=== PATIENT | male | born 1960 | race Caucasian/White ===

== ENCOUNTER 2017-04-03 06:08 | Observation (INO) | payer BC ==
[2017-04-03] MEDS ORDERED: ASPIRIN 81 MG CHEW PO STA (06:27)
[2017-04-03] MEDS ORDERED: NITROGLYCERIN SL TABS 0.4 MG TAB SUBLINGUAL STA (06:27)
[2017-04-03 06:45] LABS: Basophils % (A) 1 %; CH 31.8; CHCM 37.3; Eosinophils # (A) 0.1 k/uL (0-0.7); Eosinophils % (A) 2 %; HCT 38.2 % (39.0-53.0); Hyperchromasia Slight; Luc % (Auto) 2; Lymphocytes # (A) 1.6 k/uL (1.0-4.8); Lymphocytes % (A) 33 %; MCH 31.4 pg (25.0-35.0); MCHC 36.6 g/dL (31.0-37.0); MCV 85.8 fL (80.0-100.0); Mean Platelet Volume 6.7; Monocytes # (A) 0.3 k/uL (0-1.0); Monocytes % (A) 5 %; Neutrophils # (A) 2.8 k/uL (1.3-7.7); Neutrophils % (A) 57 %; RBC 4.46 m/uL (4.30-5.90); RDW 13.3 % (11.5-15.5); WBC 4.8 k/uL (3.8-10.6); WBC (Perox) 4.71
[2017-04-03 06:54] LABS: ALT 25 U/L (21-72); AST 21 U/L (17-59); Alkaline Phosphatase 56 U/L (38-126); Amylase 44 U/L (30-110); Anion Gap 11 mmol/L; Blood Urea Nitrogen 14 mg/dL (9-20); Calcium 9.2 mg/dL (8.4-10.2); Carbon Dioxide 26 mmol/L (22-30); Chloride 104 mmol/L (98-107); Glucose 100 mg/dL (74-99); Magnesium 1.9 mg/dL (1.6-2.3); Non-African American GFR(MDRD) >60 (>60 ml/min/1.73 sqM); Potassium 3.6 mmol/L (3.5-5.1); Sodium 141 mmol/L (137-145); Total Bilirubin 0.7 mg/dL (0.2-1.3); Total Protein 6.8 g/dL (6.3-8.2)
[2017-04-03 06:59] LABS: Partial Thromboplastin Time 22.9 sec (22.0-30.0); Prothrombin Time 10.1 sec (9.0-12.0)
--- NOTE | 2017-04-03 07:22 | XR ---
EXAM: XR Chest, 1 View CLINICAL HISTORY: Reason: chest pain TECHNIQUE: Frontal view of the chest. COMPARISON: No relevant prior studies available. FINDINGS: Lungs: Unremarkable. No consolidation. Pleural space: Unremarkable. No pneumothorax. Heart: Unremarkable. No cardiomegaly. Mediastinum: Unremarkable. Bones/joints: Unremarkable. IMPRESSION: Normal chest x-ray.
--- NOTE | 2017-04-03 07:36 | ED ---
Chest Pain HPI - General Chief Complaint: Chest Pain Stated Complaint: chest pain Time Seen by Provider: 04/03/17 06:26 Source: patient Mode of arrival: ambulatory Limitations: no limitations - History of Present Illness Initial Comments: Patient is a 56-year-old man who presents to be evaluated for chest pain that he noticed this morning. He states that he had been feeling relatively well throughout yesterday and going to bed. He indicates the pain in the substernal area. Pain is an aching, constant, and is coming by some nausea and dyspnea. MD Complaint: chest pain -: hour(s) Onset: awoke with symptoms Pain Location: substernal Pain Radiation: none Severity: moderate Quality: tightness Consistency: constant Improves With: nothing Worsens With: nothing Anginal Symptoms: nausea, dyspnea Treatments Prior to Arrival: none - Related Data Home Medications Medication Instructions Recorded Confirmed ALPRAZolam [Xanax] 0.5 mg PO DAILY 05/14/15 04/03/17 Atenolol [Tenormin] 50 mg PO DAILY 05/14/15 04/03/17 Hydrochlorothiazide [Hydrodiuril] 25 mg PO DAILY 05/14/15 04/03/17 Albuterol Inhaler [Ventolin Hfa 1 - 2 puff INHALATION RT-Q6H PRN 04/03/17 Inhaler] Isosorbide Mononitrate ER [Imdur] 60 mg PO DAILY 04/03/17 04/03/17 Modafinil [Provigil] 100 mg PO DAILY 04/03/17 04/03/17 Nitroglycerin Sl Tabs [Nitrostat] 0.4 mg SUBLINGUAL Q5M PRN 04/03/17 04/03/17 Vitamin E 3,000 unit PO DAILY 04/03/17 04/03/17 Allergies Allergy/AdvReac Type Severity Reaction Status Date / Time levofloxacin [From Levaquin] Allergy Unknown Verified 04/03/17 07:10 montelukast sodium Allergy Unknown Verified 04/03/17 07:10 [From Singulair] amlodipine besylate AdvReac Swelling Verified 04/03/17 07:10 [From Norvasc] Review of Systems ROS Statement: Those systems with pertinent positive or pertinent negative responses have been documented in the HPI. ROS Other: All systems not noted in ROS Statement are negative. Constitutional: Denies: fever, chills Respiratory: Reports: dyspnea. Denies: cough, wheezes Cardiovascular: Reports: chest pain. Denies: palpitations, edema, syncope Gastrointestinal: Reports: nausea. Denies: abdominal pain, vomiting, diarrhea, melena, hematochezia Genitourinary: Denies: dysuria, hematuria Musculoskeletal: Denies: back pain Skin: Denies: rash Neurological: Denies: headache, weakness, numbness EKG Findings - EKG Results: EKG: interpreted by ERMD, sinus rhythm (With occasional PACs, rate 75 bpm), normal axis, normal ST/T - IA, Pacemaker, Normal: Myocardial infarction: inferior IA (old age indeterminate) Past Medical History Past Medical History: Asthma, Hyperlipidemia, Hypertension, Sleep Apnea/CPAP/ BIPAP History of Any Multi-Drug Resistant Organisms: None Reported Past Surgical History: Hernia Repair, Tonsillectomy Past Anesthesia/Blood Transfusion Reactions: Unable to Obtain Additional Past Anesthesia/Blood Transfusion Reaction / Comment(s): unsure if pt has had any problems with anesthesia Past Psychological History: No Psychological Hx Reported Smoking Status: Former smoker Past Alcohol Use History: None Reported Past Drug Use History: None Reported - Past Family History Mother Family Medical History: No Reported History General Exam Limitations: no limitations General appearance: alert, in no apparent distress Head exam: Present: atraumatic, normocephalic Eye exam: Present: normal appearance. Absent: scleral icterus, conjunctival injection Neck exam: Present: normal inspection Respiratory exam: Present: normal lung sounds bilaterally. Absent: respiratory distress, wheezes, rales, rhonchi, stridor, chest wall tenderness Cardiovascular Exam: Present: regular rate, normal rhythm, normal heart sounds. Absent: systolic murmur, diastolic murmur, rubs, gallop GI/Abdominal exam: Present: soft. Absent: distended, tenderness, guarding, rebound, mass Extremities exam: Present: normal inspection, normal capillary refill. Absent: pedal edema, calf tenderness Back exam: Present: normal inspection. Absent: CVA tenderness (R), CVA tenderness (L) Neurological exam: Present: alert Skin exam: Present: warm, dry, intact, normal color. 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
[2017-04-03] MEDS ORDERED: ENOXAPARIN 100 MG/ML SYRINGE SQ STA (07:42)
[2017-04-03] MEDS ORDERED: NITROGLYCERIN SL TABS 0.4 MG TAB SUBLINGUAL PRN (07:42)
[2017-04-03] MEDS ORDERED: RX INFO: IV CONTRAST WAS GIVEN 1 EACH MISC MISCELLANE PRN (07:42)
--- NOTE | 2017-04-03 08:39 | CT ---
CT CHEST FOR PULMONARY EMBOLISM. EXAMINATION TYPE: CT chest angio for PE DATE OF EXAM: 04/03/2017 INDICATION: Chest pains CT DLP: 481.6 mGycm, Automated exposure control for dose reduction was used. CONTRAST: Patient injected with 100 mL of Omnipaque 350. COMPARISON: Pain TECHNIQUE: CT of the chest is performed on a spiral scan at 2 mm thick sections. Study is performed with intravenous contrast timed for evaluation for pulmonary embolism. This will limit additional po rtions of the evaluation. 3-D MIP images reconstructed by the technologist are reviewed on the compu ter in the coronal and sagittal planes. FINDINGS: No persistent filling defects are evident to suggest an acute pulmonary embolism. No mediastinal or hilar adenopathy enlarged by CT criteria is evident. The ascending aorta diameter at the level of the main pulmonary artery is 3.2 cm. The main pulmonary artery diameter at the bifur cation is 2.3 cm. Lung windows are clear. Limited CT section through the upper abdomen are unremarkable. IMPRESSIONS: 1. No acute pulmonary embolism.
[2017-04-03] MEDS ORDERED: ISOSORBIDE MONONITRATE ER 60 MG TAB.ER.24H PO SCH (10:00)
[2017-04-03] MEDS ORDERED: ATENOLOL 50 MG TAB PO SCH (10:00)
[2017-04-03] MEDS ORDERED: HYDROCHLOROTHIAZIDE 25 MG TAB PO SCH (10:00)
--- NOTE | 2017-04-03 10:06 | P.CRDCN ---
History of Present Illness Consult date: 04/03/17 Requesting physician: Olga Wang Consult reason: chest pain Chief complaint: Chest pain History of present illness: This is a 56-year-old gentleman with history of hypertension, hyperlipidemia, asthma, sleep apnea, he quit smoking 4 years ago, used to drink heavy, quit drinking approximately 20 years, he presents to the hospital with symptoms of chest discomfort. He describes his symptoms as an ache in the center of his chest, nonradiating, he states he did have some mild associated nausea and felt as though he was unable to take a complete deep breath. EKG on arrival here showed a normal sinus rhythm with occasional PACs. No acute changes noted. According to the patient, he was given a sublingual nitroglycerin with relief of symptoms. Chest x-ray normal. CTA of the chest did not reveal any evidence of a pulmonary embolism. Blood pressure on arrival to the emergency room 190/89. Heart rate in the 70s. 97% on room air. Blood pressure this morning 173/90 with a heart rate in the 70s. White blood cell count 4.8, hemoglobin 14, platelet count 205. D-dimer 0.7. Potassium 3.6, BUN 14, creatinine 0.9. Initial troponin 0.012. Patient was initiated on aspirin, he was also initiated on Lovenox. Patient had a stress test performed in the office in January 2016, brief arrhythmia in the form of SVT noted at peak. Moderately positive electrocardiographic stress test. Prominent ST downsloping of 1 mm at 45 minutes into recovery with mild chest soreness. At the time of my examination this morning, patient is currently chest pain-free. Past Medical History Past Medical History: Asthma, Hyperlipidemia, Hypertension, Pneumonia, Sleep Apnea/CPAP/BIPAP Additional Past Medical History / Comment(s): CRIS without device, diverticular dx, chronic back pain, sinus problems. History of Any Multi-Drug Resistant Organisms: None Reported Past Surgical History: Hernia Repair, Tonsillectomy Additional Past Surgical History / Comment(s): Bilateral inguinal hernia repairs , colonoscopies/benign polypectomy, RKAK bilateral eyes, hemorrhoidectomy Past Anesthesia/Blood Transfusion Reactions: No Reported Reaction Additional Past Anesthesia/Blood Transfusion Reaction / Comment(s): unsure if pt has had any problems with anesthesia Smoking Status: Former smoker - Past Family History Father Family Medical History: Dementia Additional Family Medical History / Comment(s): Father of dementia at the age of 94 yrs. Mother Family Medical History: No Reported History Additional Family Medical History / Comment(s): Mother of some sort of intestinal problem at the age of 48 or 49yrs. Medications and Allergies Home Medications Medication Instructions Recorded Confirmed Type ALPRAZolam [Xanax] 0.5 mg PO DAILY 05/14/15 04/03/17 History Atenolol [Tenormin] 50 mg PO DAILY 05/14/15 04/03/17 History Hydrochlorothiazide [Hydrodiuril] 25 mg PO DAILY 05/14/15 04/03/17 History Albuterol Inhaler [Ventolin Hfa 1 - 2 puff INHALATION RT-Q6H PRN 04/03/17 History Inhaler] Isosorbide Mononitrate ER [Imdur] 60 mg PO DAILY 04/03/17 04/03/17 History Modafinil [Provigil] 100 mg PO DAILY 04/03/17 04/03/17 History Nitroglycerin Sl Tabs [Nitrostat] 0.4 mg SUBLINGUAL Q5M PRN 04/03/17 04/03/17 History Vitamin E 3,000 unit PO DAILY 04/03/17 04/03/17 History Allergies Allergy/AdvReac Type Severity Reaction Status Date / Time levofloxacin [From Levaquin] Allergy Unknown Verified 04/03/17 07:10 montelukast sodium Allergy Unknown Verified 04/03/17 07:10 [From [facility]] amlodipine besylate AdvReac Swelling Verified 04/03/17 07:10 [From [facility]] Physical Exam Vitals: Vital Signs Temp Pulse Pulse Resp BP Pulse Ox 04/03/17 09:04 97.2 F L 71 18 173/92 97 04/03/17 08:50 71 18 173/92 97 04/03/17 08:32 60 18 167/87 97 04/03/17 07:18 163/95 04/03/17 06:49 66 18 163/90 97 04/03/17 06:31 69 04/03/17 06:16 97.2 F L 72 18 190/89 97 Intake and Output 04/02/17 04/03/17 04/03/17 22:59 06:59 14:59 Intake Total 200 Balance 200 Intake: Amount of Fluid Infused ( 200 ml) Other: Weight 106.594 kg PHYSICAL EXAMINATION: HEENT: [Head is atraumatic, normocephalic. Pupils equal, round. Neck is supple. There is no elevated jugular venous pressure.] HEART EXAMINATION: [Heart S1, S2 normal. No murmur or gallop heard.] CHEST EXAMINATION:[ Lungs are clear to auscultation and precussion. No chest wall tenderness is noted on palpation or with deep breathing.] ABDOMEN: [ Soft, nontender. Bowel sounds are heard. No organomegaly noted]. EXTREMITIES:[ 2+ peripheral pulses with no evidence of peripheral edema and no calf tenderness noted]. NEUROLOGIC [patient is awake, alert and oriented -3.] . Results 04/03/17 06:27 04/03/17 06:27 Cardiac Enzymes 04/03/17 04/03/17 Range/Units 06:27 06:27 AST 21 (17-59) U/L Troponin I <0.012 (0.000-0.034) ng/mL Coagulation 04/03/17 Range/Units 06:27 PT 10.1 (9.0-12.0) sec APTT 22.9 (22.0-30.0) sec CBC 04/03/17 Range/Units 06:27 WBC 4.8 (3.8-10.6) k/uL RBC 4.46 (4.30-5.90) m/uL Hgb 14.0 (13.0-17.5) gm/dL Hct 38.2 L (39.0-53.0) % Plt Count 205 (150-450) k/uL Comprehensive Metabolic Panel 04/03/17 Range/Units 06:27 Sodium 141 (137-145) mmol/L Potassium 3.6 (3.5-5.1) mmol/L Chloride 104 (98-107) mmol/L Carbon Dioxide 26 (22-30) mmol/L BUN 14 (9-20) mg/dL Creatinine 0.96 (0.66-1.25) mg/dL Glucose 100 H (74-99) mg/dL Calcium 9.2 (8.4-10.2) mg/dL AST 21 (17-59) U/L ALT 25 (21-72) U/L Alkaline Phosphatase 56 (38-126) U/L Total Protein 6.8 (6.3-8.2) g/dL Albumin 4.2 (3.5-5.0) g/dL Current Medications Generic Name Dose Route Start Last Admin Trade Name Viviana PRN Reason Stop Dose Admin Aspirin 325 mg 04/04/17 09:00 Aspirin PO DAILY JAMEL Miscellaneous Information 1 each 04/03/17 07:42 04/03/17 08:28 Rx Info: Iv Contrast Was Given MISCELLANE 04/05/17 07:42 1 each DAILY PRN Administration Per Protocol Nitroglycerin 0.4 mg 04/03/17 07:42 Nitrostat SUBLINGUAL Q5M PRN Chest Pain Intake and Output 04/02/17 04/03/17 04/03/17 22:59 06:59 14:59 Intake Total 200 Balance 200 Intake: Amount of Fluid Infused ( 200 ml) Other: Weight 106.594 kg 04/03/17 06:27 04/03/17 06:27 EKG Interpretations (text) EKG shows a normal sinus rhythm with occasional PACs no acute changes noted. Assessment and Plan Plan: Assessment and plan #1 chest pain, atypical for acute coronary syndrome. Initial troponin negative. EKG shows normal sinus rhythm with occasional PAC, no acute changes noted. #2 accelerated hypertension, blood pressure on arrival 190/90, pressure this morning 172/92. #3 history of hypertension #4 hyperlipidemia, untreated #5 prior history of smoking #6 asthma #7 sleep apnea Plan We will repeat the patient's EKG, obtain an echocardiogram with Doppler study. Add an Yoav I to his medication regime. Will obtain a stat Trop, if negative we will order Lexiscan. Resume Tenormin, Imdur, and hydro-Diuril. Discontinue Nitropaste. Further recommendations to follow. DNP note has been reviewed, I agree with a documented findings and plan of care. Patient was seen and examined.
[2017-04-03] MEDS ORDERED: LISINOPRIL 5 MG TAB PO SCH (10:30)
[2017-04-03 11:20] LABS: Troponin I <0.012 ng/mL (0.000-0.034)
[2017-04-03 11:39] VITALS: RESP 16
[2017-04-03 11:58] LABS: Creatine Kinase 63 U/L (55-170)
[2017-04-03 12:08] LABS: Creatine Kinase MB 0.4 ng/mL (0.0-2.4)
[2017-04-03] MEDS ORDERED: AMINOPHYLLINE 500 MG/20 ML VIAL IV PRN (12:19)
[2017-04-03] MEDS ORDERED: REGADENOSON 0.4 MG/5 ML SYRINGE IV ONE (12:19)
--- NOTE | 2017-04-03 14:21 | P.HPIM ---
History of Present Illness This is a 56-year-old presents to the hospital with symptoms of chest discomfort. He describes his symptoms as an ache in the center of his chest 2/ 10, nonradiating, he states he did have some mild associated nausea and chest and is nonpruritic in nature, not associated with food, no diaphoresis, denied any cough fever. EKG on arrival here showed a normal sinus rhythm with occasional PACs. No acute changes noted. According to the patient, he was given a sublingual nitroglycerin with relief of symptoms. Chest x-ray normal. CTA of the chest did not reveal any evidence of a pulmonary embolism. Patient was referred to cardiology and patient is going for stress test. Review of Systems REVIEW OF SYSTEMS: CONSTITUTIONAL: No fever, no malaise, no fatigue. HEENT: No recent visual problems or hearing problems. Denied any sore throat. CARDIOVASCULAR: No orthopnea, PND, no palpitations, no syncope. PULMONARY: No shortness of breath, no cough, no hemoptysis. GASTROINTESTINAL: No diarrhea, no nausea, no vomiting, no abdominal pain. Normoactive bowel sounds. NEUROLOGICAL: No headaches, no weakness, no numbness. HEMATOLOGICAL: Denies any bleeding or petechiae. GENITOURINARY: Denies any burning micturition, frequency, or urgency. MUSCULOSKELETAL/RHEUMATOLOGICAL: Denies any joint pain, swelling, or any muscle pain. ENDOCRINE: Denies any polyuria or polydipsia. The rest of the 14-point review of systems is negative. Past Medical History Past Medical History: Asthma, Hyperlipidemia, Hypertension, Pneumonia, Sleep Apnea/CPAP/BIPAP Additional Past Medical History / Comment(s): CRIS without device, diverticular dx, chronic back pain, sinus problems. History of Any Multi-Drug Resistant Organisms: None Reported Past Surgical History: Hernia Repair, Tonsillectomy Additional Past Surgical History / Comment(s): Bilateral inguinal hernia repairs , colonoscopies/benign polypectomy, RKAK bilateral eyes, hemorrhoidectomy Past Anesthesia/Blood Transfusion Reactions: No Reported Reaction Additional Past Anesthesia/Blood Transfusion Reaction / Comment(s): unsure if pt has had any problems with anesthesia Smoking Status: Former smoker - Past Family History Father Family Medical History: Dementia Additional Family Medical History / Comment(s): Father of dementia at the age of 94 yrs. Mother Family Medical History: No Reported History Additional Family Medical History / Comment(s): Mother of some sort of intestinal problem at the age of 48 or 49yrs. Medications and Allergies Home Medications Medication Instructions Recorded Confirmed Type ALPRAZolam [Xanax] 0.5 mg PO DAILY 05/14/15 04/03/17 History Atenolol [Tenormin] 50 mg PO DAILY 05/14/15 04/03/17 History Hydrochlorothiazide [Hydrodiuril] 25 mg PO DAILY 05/14/15 04/03/17 History Albuterol Inhaler [Ventolin Hfa 1 - 2 puff INHALATION RT-Q6H PRN 04/03/17 History Inhaler] Isosorbide Mononitrate ER [Imdur] 60 mg PO DAILY 04/03/17 04/03/17 History Modafinil [Provigil] 100 mg PO DAILY 04/03/17 04/03/17 History Nitroglycerin Sl Tabs [Nitrostat] 0.4 mg SUBLINGUAL Q5M PRN 04/03/17 04/03/17 History Vitamin E 3,000 unit PO DAILY 04/03/17 04/03/17 History Allergies Allergy/AdvReac Type Severity Reaction Status Date / Time levofloxacin [From Levaquin] Allergy Unknown Verified 04/03/17 07:10 montelukast sodium Allergy Unknown Verified 04/03/17 07:10 [From Singulair] amlodipine besylate AdvReac Swelling Verified 04/03/17 07:10 [From [facility]] Physical Exam Vitals: Vital Signs Temp Pulse Pulse Pulse Resp BP BP 04/03/17 11:37 97.6 F 64 16 167/93 04/03/17 09:04 97.2 F L 71 18 173/92 04/03/17 08:55 97.8 F 58 L 16 174/104 04/03/17 08:50 71 18 173/92 04/03/17 08:32 60 18 167/87 04/03/17 07:18 163/95 04/03/17 06:49 66 18 163/90 04/03/17 06:31 69 04/03/17 06:16 97.2 F L 72 18 190/89 Pulse Ox 04/03/17 11:37 95 04/03/17 09:04 97 04/03/17 08:55 95 07/03/17 08:50 97 04/03/17 08:32 97 04/03/17 07:18 04/03/17 06:49 97 04/03/17 06:31 04/03/17 06:16 97 Intake and Output 04/02/17 04/03/17 04/03/17 22:59 06:59 14:59 Intake Total 200 Balance 200 Intake: Amount of Fluid Infused ( 200 ml) Other: Voiding Method Toilet Weight 106.594 kg 100.698 kg Patient Weight 04/04/17 06:59 Weight 100.698 kg PHYSICAL EXAMINATION: GENERAL: The patient is alert and oriented x3, not in any acute distress. Well developed, well nourished. HEENT: Pupils are round and equally reacting to light. EOMI. No scleral icterus. No conjunctival pallor. Normocephalic, atraumatic. No pharyngeal erythema. No thyromegaly. CARDIOVASCULAR: S1 and S2 present. No murmurs, rubs, or gallops. PULMONARY: Chest is clear to auscultation, no wheezing or crackles. ABDOMEN: Soft, nontender, nondistended, normoactive bowel sounds. No palpable organomegaly. MUSCULOSKELETAL: No joint swelling or deformity. EXTREMITIES: No cyanosis, clubbing, or pedal edema. NEUROLOGICAL: Gross neurological examination did not reveal any focal deficits. SKIN: No rashes. Results CBC & Chem 7: 04/03/17 06:27 04/03/17 06:27 Labs: Abnormal Lab Results - Last 24 Hours (Table) 04/03/17 04/03/17 04/03/17 Range/Units 06:27 06:27 06:27 Hct 38.2 L (39.0-53.0) % D-Dimer 0.74 H (<0.60) mg/L FEU Glucose 100 H (74-99) mg/dL Thrombosis Risk Factor Assmnt - Choose All That Apply Any of the Below Risk Factors Present?: Yes Each Factor Represents 1 point: Age 41-60 years, Obesity (BMI >25) Other Risk Factors: No Other congenital or acquired thrombophilia - If yes, enter type in comment: No Thrombosis Risk Factor Assessment Total Risk Factor Score: 2 Thrombosis Risk Factor Assessment Level: Low Risk Assessment and Plan Plan: Chest pain: Atypical nature mostly musculoskeletal, rule out acute coronary syndromes, unstable angina. Patient is going for stress test if that's negative patient will be discharged today. Hypertension: Episodes of elevated blood pressure. No changes in medications will be made patient blood pressure monitor can be up titrated down titrated as an outpatient Hyperlipidemia Asthma without acute exacerbation Obesity and sleep apnea. For above mentioned chronic medical problems patient will continue his home medications
--- NOTE | 2017-04-03 14:28 | P.DS ---
Providers Date of admission: 04/03/17 07:43 Attending physician: Olga Wang Consults: 04/03/17 07:43 Consult Physician Routine Consulting Provider: Alcides Timmons Consult Reason/Comments: chest pain Do you want consulting provider notified?: Yes Primary care physician: Bipin Mancia [facility] Course: Please refer to history of present illness for further details Patient Condition at Discharge: Fair Plan - Discharge Summary New Discharge Prescriptions: No Action Hydrochlorothiazide [Hydrodiuril] 25 mg PO DAILY ALPRAZolam [Xanax] 0.5 mg PO DAILY Atenolol [Tenormin] 50 mg PO DAILY Nitroglycerin Sl Tabs [Nitrostat] 0.4 mg SUBLINGUAL Q5M PRN PRN Reason: Chest Pain Isosorbide Mononitrate ER [Imdur] 60 mg PO DAILY Albuterol Inhaler [Ventolin Hfa Inhaler] 1 - 2 puff INHALATION RT-Q6H PRN PRN Reason: Shortness Of Breath Modafinil [Provigil] 100 mg PO DAILY Vitamin E 3,000 unit PO DAILY Discharge Medication List ALPRAZolam [Xanax] 0.5 mg PO DAILY 05/14/15 [History] Atenolol [Tenormin] 50 mg PO DAILY 05/14/15 [History] Hydrochlorothiazide [Hydrodiuril] 25 mg PO DAILY 05/14/15 [History] Albuterol Inhaler [Ventolin Hfa Inhaler] 1 - 2 puff INHALATION RT-Q6H PRN [History] Isosorbide Mononitrate ER [Imdur] 60 mg PO DAILY 04/03/17 [History] Modafinil [Provigil] 100 mg PO DAILY 04/03/17 [History] Nitroglycerin Sl Tabs [Nitrostat] 0.4 mg SUBLINGUAL Q5M PRN 04/03/17 [History] Vitamin E 3,000 unit PO DAILY 04/03/17 [History] Follow up Appointment(s)/Referral(s): Bpiin Mancia DO [Primary Care Provider] - 1-2 days
--- NOTE | 2017-04-03 14:50 | NM ---
EXAMINATION TYPE: NM stress lexiscan cardiolite DATE OF EXAM: 04/03/2017 COMPARISON: 10/28/2009 HISTORY: 56-year-old male with chest pain TECHNIQUE: After the intravenous administration of 9.9 mCi Tc 99m Sestamibi - Cardiolite resting SPE CT images acquired 45 minutes post injection. The patient received 0.4mg Lexiscan, 25 mCi Tc 99m Sestamibi - Stress images obtained 30 minutes post injection FINDINGS: Review of stress and rest SPECT images demonstrates no distinct perfusion abnormality. Gated analysi s shows normal wall motion with an estimated left ventricular ejection fraction of 62 %. Polar maps a re normal. TID is calculated at 0.90, within normal limits. IMPRESSION: No scintigraphic evidence for reversible ischemia.
[2017-04-03 15:39] VITALS: BP 151/82; PULSE 70; TEMP 98.3
[2017-04-03] MEDS ORDERED: PRAVASTATIN SODIUM 40 MG TAB PO SCH (21:00)
[2017-04-04] MEDS ORDERED: ASPIRIN 325 MG TAB PO SCH (09:00)
--- NOTE | 2017-04-05 10:54 | P.STRESS ---
- Stress Test Note Stress Test Results/Findings: Exam Performed: NM stress lexiscan cardiolite Exam Date: 04/03/17 Height: 5 ft 10 in Weight: 100.698 kg Protocol: lexiscan Stage: 2 min Duration of Exercise: 4min Resting Heart Rate: 54 Resting Blood Pressure: 116/81 Maximum Achieved Heart Rate: 105 Maximum Achieved Blood Pressure: 162/88 85% PMHR: 138 100% PMHR: 162 METS: Technologist Comment: Stress Test Results/Findings: Baseline EKG shows normal sinus rhythmnormal axis normal intervals patient was given intravenous Lexiscan as a protocol did not have chest pain or diagnostic ST segment depression Inclusions: Negative stress test by EKG criteria Cardilate portion of the stress test will be reported separately
== END 2017-04-03 17:02 | disposition home or self-care (01) ==
LOC: EC 06:08 → 3OBS 07:43
PROVIDERS: ADMIT Hospitalist; ATTEND Hospitalist
DX: R07.89 Other chest pain (principal); I25.2 Old myocardial infarction; J45.909 Unspecified asthma, uncomplicated; G89.29 Other chronic pain; M54.9 Dorsalgia, unspecified; E78.5 Hyperlipidemia, unspecified; I10 Essential (primary) hypertension; R11.0 Nausea; E66.9 Obesity, unspecified; G47.33 Obstructive sleep apnea (adult) (pediatric); Z79.899 Other long term (current) drug therapy; Z88.1 Allergy status to other antibiotic agents; Z88.8 Allergy status to other drugs, medicaments and biological substances; Z87.891 Personal history of nicotine dependence; Z68.31 Body mass index [BMI] 31.0-31.9, adult
CPT/HCPCS: 96372; 99285; 36415; 93005; 93017; 85379; 80053; 82150; 82550; 82553; 83690; 83735; 84484; 85025; 85610; 85730; 71010; 71275; 78452; G0378; A9500; J1650; Q9967; J2785

== ENCOUNTER 2018-01-22 10:27 | Day surgery (SDC) | payer BC ==
[2018-01-17 14:28] VITALS: BMI 34.1
[~2018-01-22 10:27] MED LIST: LIDOCAINE 1% 20 ML VIAL (10MG/ML) FOR IV START INTRADERMA PRN; MIDAZOLAM 2 MG/2 ML VIAL IV PRN
[2018-01-22 10:53] VITALS: RESP 16; TEMP 97.8
[2018-01-22] MEDS: LACTATED RINGERS 1,000 ML IV SCH ×2 (10:53→11:37)
[2018-01-22] MEDS ORDERED: PROPOFOL 10 MG/ML 20 ML VIAL IV ONE (11:51)
--- NOTE | 2018-01-22 12:22 | P.PCN ---
Date of Procedure: 01/22/18 Procedure(s) Performed: Procedure: Colonoscopy and polypectomy. Preoperative diagnosis: Screening for neoplasia, patient has history of polyps. Postoperative diagnosis: 1. Diverticulosis with no evidence of acute diverticulitis or strictures. 2. Sigmoid polyp snared but no large polyps or cancer. Preparation: HalfLytely prep. Sedation: Was provided by anesthesia. Brief clinical history: The patient is a 57-year-old male who is scheduled for this evaluation for screening for neoplasia because of history of polyps. His last exam was in 2014. At this time, he has no abdominal complaints or bleeding. Has mild anemia. Procedure: With the patient on his left lateral decubitus position and after informed consent and adequate sedation, the perianal area was inspected and it did not show any fissures or fistulas. There were no masses felt on digital rectal examination. The Olympus CFQ 160L video colonoscope was then inserted in the rectum in the usual fashion and advanced to the cecum. There were multiple diverticular orifices seen scattered in the sigmoid and few around the hepatic flexure and on the right side but there was no evidence of acute diverticulitis or strictures. There was a polyp in the sigmoid around 35 cm from the anal verge which was snared and retrieved by suction but there were no large polyps or cancer. I retroflexed the endoscope in the rectum before the endoscope was withdrawn. The patient tolerated the procedure well. Plan: The patient was reassured. Discussed dietary measures. He will follow up with you as planned and I recommended repeat exam in 5 years. Upper endoscopy can be considered for further workup of his anemia if it persists or worsen. I will be happy to see in the office as outpatient if needed.
[2018-01-22 12:40] VITALS: BP 131/80; PULSE 65
== END 2018-01-22 12:58 | disposition home or self-care (01) ==
LOC: ORWHC2ENDO 10:27
DX: Z12.11 Encounter for screening for malignant neoplasm of colon (principal); D12.5 Benign neoplasm of sigmoid colon; K57.30 Diverticulosis of large intestine without perforation or abscess without bleeding; Z86.010 Personal history of colon polyps; D64.9 Anemia, unspecified; I10 Essential (primary) hypertension; E78.5 Hyperlipidemia, unspecified; J45.909 Unspecified asthma, uncomplicated; G47.33 Obstructive sleep apnea (adult) (pediatric); M54.9 Dorsalgia, unspecified; Z79.899 Other long term (current) drug therapy; Z88.1 Allergy status to other antibiotic agents; Z88.8 Allergy status to other drugs, medicaments and biological substances
CPT/HCPCS: 45385; J2704; 88305

== ENCOUNTER → 2018-08-17 | Outpatient (CLI) | payer OTHER ==
--- NOTE | 2018-08-17 15:20 | XR ---
EXAMINATION TYPE: XR lumbar spine 2 or 3V DATE OF EXAM: 08/17/2018 CLINICAL HISTORY: Pain in low back after lifting injury. TECHNIQUE: Frontal and lateral images of the lumbar spine are obtained. COMPARISON: None FINDINGS: There are 5 lumbar type vertebral bodies identified. The lumbar spine shows satisfactory alignment without evidence of acute fracture or dislocation. There is mild disc space narrowing with mild anterior spurring L1-L2 level. Vertebral body heights and disk space heights otherwise are withi n normal limits. There is multilevel facet arthropathy most prominent in the lower lumbar spine. Prom inent vascular calcification overlying abdominal aorta is noted. IMPRESSION: No acute fracture or dislocation is seen in the lumbar spine.
== END ==
LOC: RADXRMAIN 14:55
PROVIDERS: ATTEND Emergency Medicine
DX: S39.012A Strain of muscle, fascia and tendon of lower back, initial encounter (principal)
CPT/HCPCS: 72100

== ENCOUNTER → 2018-08-28 | Outpatient (CLI) | payer BC ==
--- NOTE | 2018-08-28 15:45 | US ---
EXAMINATION TYPE: US duplex aorta DATE OF EXAM: 08/28/2018 COMPARISON: CLINICAL HISTORY: I10 Essential hypertension R002 Palpitations. Xray showed calcifications in Aorta. HTN. previous smoker. High cholesterol. EXAM MEASUREMENTS: Abdominal Aorta: Proximal: 2.1 x 2.4 cm Mid: 1.5 x 1.4 cm Distal: 1.0 x 1.8 cm Bifurcation: right- 0.9 x 1.3 cm left- 0.8 x 1.1 cm Plaque seen throughout Aorta. Suboptimal visualization due to patient body habitus. IMPRESSION: No evidence for abdominal aortic aneurysm. Plaque noted.
--- NOTE | 2018-08-29 07:26 | ECHOF ---
Referral Reason:I10; R00.2; R93.89 MEASUREMENTS -------- HEIGHT: 175.3 cm WEIGHT: 104.3 kg BP: 170/7 RVIDd: 3.5 cm (< 3.3) IVSd: 1.4 cm (0.6 - 1.1) LVIDd: 4.9 cm (3.9 - 5.3) LVPWd: 1.4 cm (0.6 - 1.1) IVSs: 1.7 cm LVIDs: 3.6 cm LVPWs: 1.8 cm LA Diam: 3.7 cm (2.7 - 3.8) LAESV Index (A-L): 21.62 ml/m Ao Diam: 3.7 cm (2.0 - 3.7) AV Cusp: 2.4 cm (1.5 - 2.6) MV EXCURSION: 16.009 mm (> 18.000) MV EF SLOPE: 99 mm/s (70 - 150) EPSS: 0.3 cm MV E Robbie: 0.56 m/s MV DecT: 217 ms MV A Robbie: 0.56 m/s MV E/A Ratio: 1.00 FINDINGS -------- Sinus rhythm. This was a technically good study. The left ventricular size is normal. There is moderate concentric left ventricular hypertrophy. O verall left ventricular systolic function is normal with, an EF between 55 - 60 %. The right ventricle is mildly enlarged. Normal LA size by volume 22+/-6 ml/m2. The right atrium is normal in size. The aortic valve is trileaflet and appears structurally normal. The mitral valve is normal. Mild mitral regurgitation is present. The tricuspid valve appears structurally normal. Trace tricuspid regurgitation present. Trace/mild (physiologic) pulmonic regurgitation. The aortic root size is normal. Normal inferior vena cava with normal inspiratory collapse consistent with estimated right atrial pre ssure of 5 mmHg. There is no pericardial effusion. CONCLUSIONS -------- 1. Sinus rhythm. 2. This was a technically good study. 3. The left ventricular size is normal. 4. There is moderate concentric left ventricular hypertrophy. 5. Overall left ventricular systolic function is normal with, an EF between 55 - 60 %. 6. The right ventricle is mildly enlarged. 7. Normal LA size by volume 22+/-6 ml/m2. 8. The aortic valve is trileaflet and appears structurally normal. 9. The mitral valve is normal. 10. Mild mitral regurgitation is present. 11. The tricuspid valve appears structurally normal. 12. Trace tricuspid regurgitation present. 13. Trace/mild (physiologic) pulmonic regurgitation. 14. The aortic root size is normal. 15. Normal inferior vena cava with normal inspiratory collapse consistent with estimated right atrial pressure of 5 mmHg. 16. There is no pericardial effusion. BARKER PEELER: Virginia Randall RDCS
== END | disposition home or self-care (01) ==
LOC: RADUSMAIN 08:08
PROVIDERS: ATTEND Family Medicine
DX: I34.0 Nonrheumatic mitral (valve) insufficiency (principal); I37.1 Nonrheumatic pulmonary valve insufficiency; R00.2 Palpitations; I10 Essential (primary) hypertension; Z87.891 Personal history of nicotine dependence
CPT/HCPCS: 93306; 93979

== ENCOUNTER → 2020-03-18 | Outpatient (CLI) | payer SELFPAY ==
--- NOTE | 2020-03-18 15:15 | US ---
EXAMINATION TYPE: US thyroid st tissue head/neck DATE OF EXAM: 03/18/2020 COMPARISON: NONE CLINICAL HISTORY: 59-year-old male R22.1 SWELLING, MASS AND LUMP. TECHNIQUE: Multiple sonographic images of the kidneys and bladder are obtained. FINDINGS: GLAND SIZE: Right Lobe: 3.8 x 1.6 x 1.2 cm Overall Parenchyma: homogenous Left Lobe: 3.8 x 1.2 x 1.5 cm Overall Parenchyma: homogeneous Isthmus Thickness: 0.4 cm NODULES RIGHT: # of nodules measured on right: 0 0 LEFT: # of nodules measured on left: 0 ISTHMUS: # of nodules measured in the isthmus: 0 Patient states his left neck was the size of a baseball, but has since receded. Bilateral neck scanned, no evidence of lymphadenopathy. Inferior to thyroid bilaterally is a hyperechoic mass measuring Right: 0.7 x 0.5 x 0.7cm, Left 0.7 x 0.5 x 0.7cm, possible prominent lymph nodes and fatty hilum. Along the left lateral neck, rounded but nonenlarged 9 x 9 x 6 mm lymph node is noted. IMPRESSION: 1. No discrete thyroid nodule. 2. A 7 mm echogenic lesion located below either side of the thyroid gland probably reflects fatty hil a relating to prominent but nonenlarged lymph nodes. Short-term follow-up can be performed. 3. Suspect a reactive, rounded but nonenlarged 9 mm left lateral cervical lymph node.
== END | disposition home or self-care (01) ==
LOC: RADUSWWP 14:06
PROVIDERS: ATTEND Family Medicine
DX: E07.89 Other specified disorders of thyroid (principal)
CPT/HCPCS: 76536

== ENCOUNTER → 2021-02-15 | Outpatient (CLI) | payer OTHER ==
--- NOTE | 2021-02-16 12:25 | XR ---
EXAMINATION TYPE: XR elbow complete RT DATE OF EXAM: 02/15/2021 CLINICAL HISTORY: Right elbow pain after hyperextension during heavy lifting TECHNIQUE: Frontal, lateral and oblique images of the right elbow are obtained. COMPARISON: None FINDINGS: There is no acute fracture/dislocation evident in the right elbow. No abnormal fat pad si gns are seen. The overlying soft tissue appears unremarkable. IMPRESSION: There is no acute fracture or dislocation in the right elbow.
== END | disposition home or self-care (01) ==
LOC: RADXRMAIN 16:00
PROVIDERS: ATTEND Physician Assistant
DX: M25.521 Pain in right elbow (principal)

== ENCOUNTER → 2021-03-23 | Outpatient (CLI) | payer BC ==
--- NOTE | 2021-03-23 15:28 | CT ---
EXAMINATION TYPE: CT soft tissue neck w con DATE OF EXAM: 03/23/2021 COMPARISON: None HISTORY: left sided neck swelling CT DLP: 465 mGycm CONTRAST: CT scan of the neck is performed with IV Contrast, patient injected with 100 mL of Isovue 300. Contrast enhanced CT of the neck was performed from the skull base through the lung apices. AIRWAY: The supraglottic, glottic, and subglottic portions of the airway appear patent and free of mass. SALIVARY GLANDS: The submandibular and parotid glands are free of mass or inflammatory process. THYROID GLAND: No nodules or masses seen. LYMPH NODES: There is a large soft tissue mass measuring approximately 3.8 x 4.0 x 3.8 cm arising at and lateral to the left internal jugular vein. I cannot exclude obstruction of the left internal jugu lar vein at this level as there is a low density structure within the peripheral portion of the mass which may reflect thrombus. The mass appears to infiltrate into the left sternocleidomastoid musculat ure. There is no evidence for infiltration into the submandibular gland or the left parotid gland. Le ft parapharyngeal space is well-preserved at this time. No additional mass is identified. LUNG APICES: No nodule or mass is seen. OTHER: Vascular structures are patent. No significant degenerative change of the cervical spine. N o abscess seen. IMPRESSION: There is a large soft tissue mass measuring approximately 3.8 x 4.0 x 3.8 cm arising at and lateral t o the left internal jugular vein. I cannot exclude obstruction of the left internal jugular vein at t his level as there is a low density structure within the peripheral portion of the mass which may ref lect thrombus. The mass appears to infiltrate into the left sternocleidomastoid musculature.
== END | disposition home or self-care (01) ==
LOC: RADCTMAIN 14:36
PROVIDERS: ATTEND Otolaryngology
DX: R22.1 Localized swelling, mass and lump, neck (principal)
CPT/HCPCS: 70491; Q9967

== ENCOUNTER → 2021-04-20 | Outpatient (CLI) | payer BC ==
--- NOTE | 2021-04-20 18:32 | ECHOF ---
Referral Reason:R00.2 Palpitations MEASUREMENTS -------- HEIGHT: 180.3 cm WEIGHT: 99.8 kg BP: RVIDd: 2.7 cm (< 3.3) IVSd: 1.1 cm (0.6 - 1.1) LVIDd: 4.7 cm (3.9 - 5.3) LVPWd: 1.3 cm (0.6 - 1.1) IVSs: 1.6 cm LVIDs: 2.6 cm LVPWs: 2.2 cm LAESV Index (A-L): 24.32 ml/m Ao Diam: 3.5 cm (2.0 - 3.7) AV Cusp: 1.8 cm (1.5 - 2.6) LA Diam: 3.6 cm (2.7 - 3.8) MV EXCURSION: 17.701 mm (> 18.000) MV EF SLOPE: 103 mm/s (70 - 150) EPSS: 0.5 cm MV E Robbie: 0.65 m/s MV DecT: 202 ms MV A Robbie: 0.65 m/s MV E/A Ratio: 1.00 AR PHT: 1013 ms RAP: 5.00 mmHg RVSP: 16.77 mmHg FINDINGS -------- This was a technically good study. The left ventricular size is normal. Left ventricular wall thickness is normal. Overall left vent ricular systolic function is normal with, an EF between 55 - 60 %. The diastolic filling pattern is normal for the age of the patient 8.60. The right ventricle is normal in size. The left atrial size is normal. Normal LA size by volume 22+/-6 ml/m2. The right atrial size is normal. The aortic valve is trileaflet and appears structurally normal. There is mild aortic regurgitation. The mitral valve is normal. There is trace mitral regurgitation. The tricuspid valve appears structurally normal. Trace tricuspid regurgitation present. Right julio tricular systolic pressure is normal at < 35 mmHg. There is no pulmonic regurgitation present. The aortic root size is normal. Normal inferior vena cava with normal inspiratory collapse consistent with estimated right atrial pre ssure of 5 mmHg. There is no pericardial effusion. CONCLUSIONS -------- 1. The left ventricular size is normal. 2. Left ventricular wall thickness is normal. 3. Overall left ventricular systolic function is normal with, an EF between 55 - 60 %. 4. The diastolic filling pattern is normal for the age of the patient 8.60 5. There is mild aortic regurgitation. 6. There is trace mitral regurgitation. 7. Trace tricuspid regurgitation present. 8. There is no pericardial effusion. PROTOTYPER: Lauren Rodriguez RDCS
== END | disposition home or self-care (01) ==
LOC: RADECHMAIN 15:05
PROVIDERS: ATTEND Family Medicine
DX: I35.1 Nonrheumatic aortic (valve) insufficiency (principal); I49.1 Atrial premature depolarization; I34.0 Nonrheumatic mitral (valve) insufficiency; I07.1 Rheumatic tricuspid insufficiency; I10 Essential (primary) hypertension; R00.2 Palpitations
CPT/HCPCS: 93306

== ENCOUNTER 2021-09-19 10:29 | Emergency (ER) | payer BC ==
[2021-09-19 11:04] VITALS: RESP 18; TEMP 98.5
[2021-09-19] MEDS ORDERED: HYDROmorphone 1 MG/ML 1 ML SYRINGE IM STA (11:45)
--- NOTE | 2021-09-19 11:54 | ED ---
Fall HPI - General Chief Complaint: Fall Stated Complaint: Fall/Rt ar injury Time Seen by Provider: 09/19/21 11:04 Source: patient, RN notes reviewed Mode of arrival: ambulatory Limitations: no limitations - History of Present Illness Initial Comments: This a 61-year-old male presents emergency Department with chief complaint of right elbow, wrist pain. Patient states that he slipped Suffers Right Arm Causing Severe Pain and Bruising and Swelling. Patient Is Unable to Move His Right Arm at the Elbow Primarily States It's Too Painful, Worse with Certain Movements. No Head Injury No Loss Conscious. - Related Data Home Medications Medication Instructions Recorded Confirmed lisinopriL [Zestril] 20 mg PO DAILY 09/19/21 09/19/21 Allergies Allergy/AdvReac Type Severity Reaction Status Date / Time levofloxacin [From Levaquin] Allergy FATIGUE, Verified 09/19/21 11:31 WEAKNESS AND DARK URINE montelukast sodium Allergy CAUSED URI Verified 09/19/21 11:31 [From Singulair] amlodipine besylate AdvReac Swelling Verified 09/19/21 11:31 [From Norvasc] Review of Systems ROS Statement: Those systems with pertinent positive or pertinent negative responses have been documented in the HPI. ROS Other: All systems not noted in ROS Statement are negative. 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 History of Any Multi-Drug Resistant Organisms: None Reported Past Surgical History: Hernia Repair, Tonsillectomy Additional Past Surgical History / Comment(s): Bilateral inguinal hernia repairs, colonoscopies/benign polypectomy, RKAK bilateral eyes, hemorrhoidectomy, SINUS SX Past Anesthesia/Blood Transfusion Reactions: No Reported Reaction Additional Past Anesthesia/Blood Transfusion Reaction / Comment(s): unsure if pt has had any problems with anesthesia Past Psychological History: No Psychological Hx Reported Smoking Status: Former smoker Past Alcohol Use History: Occasional Past Drug Use History: None Reported - Past Family History Father Family Medical History: Dementia Additional Family Medical History / Comment(s): Father of dementia at the age of 94 yrs. Mother Family Medical History: No Reported History Additional Family Medical History / Comment(s): Mother of some sort of intestinal problem at the age of 48 or 49yrs. General Exam Limitations: no limitations General appearance: alert, in no apparent distress Head exam: Present: atraumatic, normocephalic, normal inspection Eye exam: Present: normal appearance, PERRL, EOMI. Absent: scleral icterus, conjunctival injection, periorbital swelling Respiratory exam: Present: normal lung sounds bilaterally. Absent: respiratory distress, wheezes, rales, rhonchi, stridor Cardiovascular Exam: Present: regular rate, normal rhythm, normal heart sounds. Absent: systolic murmur, diastolic murmur, rubs, gallop, clicks Extremities exam: Present: other (Right elbow there is moderate swelling, ecchymosis very limited range of motion tenderness palpation, wrist tenderness noted, neurovascular intact) Neurological exam: Present: alert, reflexes normal. Absent: motor sensory deficit Course Vital Signs 09/19/21 11:00 Temperature 98.5 F Pulse Rate 99 Respiratory 18 Rate Blood Pressure 147/102 O2 Sat by Pulse 99 Oximetry Procedures - Orthopedic Splinting/Casting Injury #1 Side: right Upper Extremity Injury Location: long arm, elbow Upper Extremity Immobilizer: sling/shoulder immobilizer, posterior splint, synthetic pre-padded splint Medical Decision Making - Medical Decision Making Patient has a right coracoid process fracture. Patient was splinted and will follow-up with orthopedics. Disposition Clinical Impression: Displaced fracture of coronoid process of right ulna Disposition: HOME SELF-CARE Condition: Stable Instructions (If sedation given, give patient instructions): Arm Fracture in Adults (ED) Additional Instructions: Please return to the Emergency Department if symptoms worsen or any other concerns. Is patient prescribed a controlled substance at d/c from ED?: No Referrals: Bipin Mancia DO [Primary Care Provider] - 1-2 days Maranda Campos DO [Doctor of Osteopathic Medicine] - 1-2 days Time of Disposition: 12:48
--- NOTE | 2021-09-19 12:22 | XR ---
EXAMINATION TYPE: XR wrist complete RT DATE OF EXAM: 09/19/2021 12:12 PM INDICATION: Patient age:Male; 61 years old; Reason for study: pain; COMPARISON: None TECHNIQUE: The right wrist was examined in 4 projections. FINDINGS: No acute osseous pathology, joint dislocation, or joint effusion. No evidence of any soft tissue swelling is seen. IMPRESSION: No acute osseous pathology.
--- NOTE | 2021-09-19 12:22 | XR ---
EXAMINATION TYPE: XR elbow complete RT DATE OF EXAM: 09/19/2021 12:12 PM INDICATION: Patient age:Male; 61 years old; Reason for study: pain; COMPARISON: 02/15/2021 TECHNIQUE: The right elbow was examined in AP, lateral, and oblique projections. FINDINGS: There is a cortical step-off of the coronoid process of the right ulna new from prior. No j oint dislocation, or soft tissue swelling is noted. IMPRESSION: Age indeterminant fracture of the right coronoid process.
[2021-09-19] MEDS ORDERED: ACET/COD 300 MG/30 MG STARTER PACK 6 TAB BTL PO STA (12:46)
[2021-09-19 13:20] VITALS: BP 140/83; PULSE 78
== END 2021-09-19 13:21 | disposition home or self-care (01) ==
LOC: EC 10:29
DX: S52.041A Displaced fracture of coronoid process of right ulna, initial encounter for closed fracture (principal); I10 Essential (primary) hypertension; Z88.1 Allergy status to other antibiotic agents; Z88.8 Allergy status to other drugs, medicaments and biological substances; J45.909 Unspecified asthma, uncomplicated; Z79.899 Other long term (current) drug therapy; Z87.891 Personal history of nicotine dependence; W00.0XXA Fall on same level due to ice and snow, initial encounter
CPT/HCPCS: 73080; 73110; 99284; 96372; 29105; J1170

== ENCOUNTER → 2021-09-23 | Outpatient (CLI) | payer BC ==
--- NOTE | 2021-09-23 09:40 | CT ---
EXAMINATION TYPE: CT elbow RT wo con DATE OF EXAM: 09/23/2021 COMPARISON: Plain film 09/19/2021 HISTORY: fall, trauma and pain CT DLP: 143.3 mGycm Automated exposure control for dose reduction was used. Helical imaging through the right elbow. Thre e-dimensional reconstructions performed. FINDINGS: Comminuted displaced intra-articular fracture present of the coronoid process the level of the proxim al ulna is again noted. There is extensive soft tissue swelling present. Some motion is present on th e exam. No evident dislocation. IMPRESSION: FRACTURE IS CONFIRMED
== END | disposition home or self-care (01) ==
LOC: RADCTMAIN 06:56
PROVIDERS: ATTEND Orthopaedic Surgery
DX: S52.041A Displaced fracture of coronoid process of right ulna, initial encounter for closed fracture (principal); X58.XXXA Exposure to other specified factors, initial encounter

== ENCOUNTER 2021-10-03 07:20 | Emergency (ER) | payer BC ==
[2021-10-03 07:25] VITALS: BP 172/94; PULSE 90; TEMP 97.9
[2021-10-03] MEDS ORDERED: dexAMETHasone 2 MG TAB PO STA (07:43)
--- NOTE | 2021-10-03 07:47 | ED ---
General Adult HPI - General Chief complaint: ENT Stated complaint: trouble swallowing and breathing Time Seen by Provider: 10/03/21 07:20 Source: patient, RN notes reviewed, old records reviewed Mode of arrival: ambulatory Limitations: no limitations - History of Present Illness Initial comments: This is a 61-year-old male who presents emergency department stating that he is having difficulty swallowing. Patient states he had radiation on his tongue and the lymph nodes in his posterior pharynx in July. Patient states since then he's had some difficulty swallowing but this morning it was the worst of his been. Patient states she still capable of swallowing his saliva. Patient states however does much more difficult than normal. Patient states he also felt like he was having difficulty breathing today. Patient denies any fever chills. Patient denies any cough patient denies abdominal pain patient denies nausea vomiting diarrhea. Patient states he does have a COVID vaccine and the booster for comfort. - Related Data Home Medications Medication Instructions Recorded Confirmed lisinopriL [Zestril] 20 mg PO DAILY 09/19/21 10/03/21 Dexamethasone [Decadron] 4 mg PO DAILY 10/03/21 10/03/21 HYDROcodone/APAP 10-325MG [[place] 1 tab PO Q4H PRN 10/03/21 10/03/21 10-325] Previous Rx's Medication Instructions Recorded Dexamethasone [Decadron] 6 mg PO DAILY #5 tablet 10/03/21 Fluconazole [Diflucan] 100 mg PO DAILY #5 tablet 10/03/21 Allergies Allergy/AdvReac Type Severity Reaction Status Date / Time amlodipine besylate AdvReac Swelling Verified 10/03/21 08:17 [From Norvasc] levofloxacin [From Levaquin] AdvReac FATIGUE, Verified 10/03/21 08:17 WEAKNESS AND DARK URINE montelukast sodium AdvReac CAUSED URI Verified 10/03/21 08:17 [From Singulair] Review of Systems ROS Statement: Those systems with pertinent positive or pertinent negative responses have been documented in the HPI. ROS Other: All systems not noted in ROS Statement are negative. 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 History of Any Multi-Drug Resistant Organisms: None Reported Past Surgical History: Hernia Repair, Tonsillectomy Additional Past Surgical History / Comment(s): Bilateral inguinal hernia repairs, colonoscopies/benign polypectomy, RKAK bilateral eyes, hemorrhoidectomy, SINUS SX Past Anesthesia/Blood Transfusion Reactions: No Reported Reaction Additional Past Anesthesia/Blood Transfusion Reaction / Comment(s): unsure if pt has had any problems with anesthesia Past Psychological History: No Psychological Hx Reported Smoking Status: Former smoker Past Alcohol Use History: Occasional Past Drug Use History: None Reported - Past Family History Father Family Medical History: Dementia Additional Family Medical History / Comment(s): Father of dementia at the age of 94 yrs. Mother Family Medical History: No Reported History Additional Family Medical History / Comment(s): Mother of some sort of intestinal problem at the age of 48 or 49yrs. General Exam - General Exam Comments Initial Comments: GENERAL: Patient is well-developed and well-nourished. Patient is nontoxic and well- hydrated and is in mild distress. ENT: Neck is soft and supple. There is some white plaques on the uvula and around the soft palate. Could be thrush. There is no swelling noted however. Moist mucous membranes. Neck has full range of motion without eliciting any pain. EYES: The sclera were anicteric and conjunctiva were pink and moist. Extraocular movements were intact and pupils were equal round and reactive to light. Eyelids were unremarkable. PULMONARY: Unlabored respirations. Good breath sounds bilaterally. No audible rales rhonchi or wheezing was noted. CARDIOVASCULAR: There is a regular rate and rhythm without any murmurs gallops or rubs. ABDOMEN: Soft and nontender with normal bowel sounds. SKIN: Skin is clear with no lesions or rashes and otherwise unremarkable. NEUROLOGIC: Patient is alert and oriented x3. Cranial nerves II through XII are grossly intact. Motor and sensory are also intact. Normal speech, volume and content. Symmetrical smile. MUSCULOSKELETAL: Normal extremities with adequate strength and full range of motion. LYMPHATICS: No significant lymphadenopathy is noted PSYCHIATRIC: Normal psychiatric evaluation. Limitations: no limitations Course Vital Signs 10/03/21 07:22 Temperature 97.9 F Pulse Rate 90 Respiratory 20 Rate Blood Pressure 172/94 O2 Sat by Pulse 97 Oximetry Medical Decision Making - Medical Decision Making Patient was drinking water when I went back in the room to reevaluate him. Chest x-ray showed no acute abnormality. Soft tissue of the neck showed a swollen epiglottis. I spoke with oncology [facility] in the agreed that the patient should be placed on steroids and Diflucan for the thrush. Patient is aware that he should follow up this week. - Lab Data Lab Results 10/03/21 Range/Units 08:09 Coronavirus (PCR) Not Detected (Not Detectd) Disposition Clinical Impression: Dysphasia, Thrush Disposition: HOME SELF-CARE Condition: Good Prescriptions: Dexamethasone [Decadron] 6 mg PO DAILY #5 tablet Fluconazole [Diflucan] 100 mg PO DAILY #5 tablet Is patient prescribed a controlled substance at d/c from ED?: No Referrals: Bipin Mancia DO [Primary Care Provider] - 1-2 days Time of Disposition: 09:04
--- NOTE | 2021-10-03 08:23 | XR ---
EXAMINATION TYPE: XR chest 2V DATE OF EXAM: 10/03/2021 COMPARISON: 04/03/2017 INDICATION: Difficulty breathing TECHNIQUE: Frontal and lateral views of the chest are obtained. FINDINGS: The heart size is normal. The pulmonary vasculature is normal. The lungs are clear. IMPRESSION: 1. No acute pulmonary process.
--- NOTE | 2021-10-03 08:30 | XR ---
EXAMINATION TYPE: XR soft tissue neck DATE OF EXAM: 10/03/2021 COMPARISON: None HISTORY: Occultly swallowing and breathing TECHNIQUE: Two-view soft tissue neck FINDINGS: There is an enlarged thickened epiglottis. Correlate for acute epiglottitis. Soft tissue sw elling is in the submental space. There may be some steepling of the subglottic airway. There is omega e additional soft tissue swelling of the submental space. Report was called to the emergency room physician Dr. Acuna by Dr. Lugo by telephone at the time of interpretation. Case was discussed. Patient's complaint is difficulty swallowing. The patient is sta tus post tongue cancer with radiation. There are no clinical findings suggestive for infection. Findi ngs can be post radiation in nature. Prevertebral space is normal. There is narrowing of the disc height C5-6. IMPRESSION: 1. Thickening of the epiglottis. Correlate for post tongue cancer treatment changes.
[2021-10-03] MEDS ORDERED: FLUCONAZOLE 100 MG TAB PO ONE (09:05)
[2021-10-03 09:47] VITALS: RESP 18
== END 2021-10-03 09:49 | disposition home or self-care (01) ==
LOC: EC 07:20
DX: B37.9 Candidiasis, unspecified (principal); J45.909 Unspecified asthma, uncomplicated; I10 Essential (primary) hypertension; Z88.8 Allergy status to other drugs, medicaments and biological substances; Z88.1 Allergy status to other antibiotic agents; Z79.899 Other long term (current) drug therapy; Z20.822 Contact with and (suspected) exposure to COVID-19; Z87.891 Personal history of nicotine dependence
CPT/HCPCS: 87635; 70360; 71046; 99284; J8540

== ENCOUNTER 2023-01-24 17:18 | Observation (INO) | payer BC ==
[2023-01-24] MEDS ORDERED: ASPIRIN 81 MG PO STA (17:31)
--- NOTE | 2023-01-24 17:33 | ED ---
General Adult HPI - General Chief complaint: Arrhythmia/Palpitations Stated complaint: HIGH HEART RATE Time Seen by Provider: 01/24/23 17:25 Source: patient, RN notes reviewed Mode of arrival: ambulatory Limitations: no limitations - History of Present Illness Initial comments: Patient is a pleasant [age]-year-old male presenting to the emergency depar tment with concerns palpitations. Patient does have history of palpitations in the past however he did check his heart rate on his blood pressure monitor and it read high. Patient feels his heart is going fast. Patient also has very mild shortness of breath. Onset of symptoms was around 3 hours ago. Patient denies chest pain. No leg pain or leg swelling. No back pain. No history of previous cardiac arrhythmia. - Related Data Home Medications Medication Instructions Recorded Confirmed ALPRAZolam [Xanax] 0.5 mg PO DAILY PRN 01/24/23 01/24/23 Amoxic-Pot Clav 500-125 mg 1 tab PO Q12HR 01/24/23 01/24/23 [Augmentin 500-125 mg] Cholecalciferol [Vitamin D3 (25 100 mcg PO DAILY@1200 01/24/23 01/24/23 Mcg = 1000 Iu)] HYDROcodone/APAP 5-325MG [[place] 1 tab PO Q6H PRN 01/24/23 01/24/23 5-325] Ibuprofen [Motrin] 600 mg PO Q8HR PRN 01/24/23 01/24/23 Levothyroxine Sodium [Synthroid] 88 mcg PO DAILY 01/24/23 01/24/23 Magnesium 250 mg PO DAILY@1200 01/24/23 01/24/23 Sildenafil Citrate [Viagra] 100 mg PO DAILY 01/24/23 01/24/23 lisinopriL [Zestril] 30 mg PO DAILY 01/24/23 01/24/23 Allergies Allergy/AdvReac Type Severity Reaction Status Date / Time amlodipine besylate AdvReac Swelling Verified 01/24/23 18:14 [From Norvasc] levofloxacin [From Levaquin] AdvReac FATIGUE, Verified 01/24/23 18:14 WEAKNESS AND DARK URINE montelukast sodium AdvReac CAUSED URI Verified 01/24/23 18:14 [From Singulair] Review of Systems ROS Statement: Those systems with pertinent positive or pertinent negative responses have been documented in the HPI. ROS Other: All systems not noted in ROS Statement are negative. Constitutional: Denies: fever Eyes: Denies: eye pain ENT: Denies: ear pain Respiratory: Reports: as per HPI. Denies: cough Cardiovascular: Reports: as per HPI, palpitations. 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 History of Any Multi-Drug Resistant Organisms: None Reported Past Surgical History: Hernia Repair, Tonsillectomy Additional Past Surgical History / Comment(s): Bilateral inguinal hernia repairs, colonoscopies/benign polypectomy, RKAK bilateral eyes, hemorrhoidectomy, SINUS SX Past Anesthesia/Blood Transfusion Reactions: No Reported Reaction Additional Past Anesthesia/Blood Transfusion Reaction / Comment(s): unsure if pt has had any problems with anesthesia Past Psychological History: No Psychological Hx Reported Smoking Status: Former smoker Past Alcohol Use History: Occasional Past Drug Use History: Marijuana - Past Family History Father Family Medical History: Dementia Additional Family Medical History / Comment(s): Father of dementia at the age of 94 yrs. Mother Family Medical History: No Reported History Additional Family Medical History / Comment(s): Mother of some sort of intestinal problem at the age of 48 or 49yrs. General Exam Limitations: no limitations General appearance: alert, in no apparent distress Head exam: Present: normocephalic Eye exam: Present: normal appearance Neck exam: Present: normal inspection Respiratory exam: Present: normal lung sounds bilaterally Cardiovascular Exam: Present: tachycardia, irregular rhythm Expanded Peripheral pulses: 2+: Radial (R), Radial (L), Posterior Tibialis (R), Posterior Tibialis (L), Dorsalis Pedis (R), Dorsalis Pedis (L) GI/Abdominal exam: Present: soft. Absent: tenderness, guarding Extremities exam: Present: normal inspection. Absent: pedal edema, calf tenderness Neurological exam: Present: alert Psychiatric exam: Present: normal affect, normal mood Skin exam: Present: normal color Course Vital Signs 01/24/23 01/24/23 01/24/23 17:20 18:00 18:30 Pulse Rate 163 H 93 98 Respiratory 18 16 18 Rate Blood Pressure 135/99 152/71 115/86 O2 Sat by Pulse 99 97 95 Oximetry EKG Findings - EKG Results: EKG: interpreted by SLOAN (Atrial flutter. Left axis.), normal QRS, normal ST/T EKG shows: tachycardia Medical Decision Making - Medical Decision Making Was pt. sent in by a medical professional or institution (, [facility], BREAD STACKER, urgent care, hospital, or fci...) When possible be specific @ -No Did you speak to anyone other than the patient for history (EMS, parent, family, police, friend...)? What history was obtained from this source @ -No Did you review nursing and triage notes (agree or disagree)? Why? @ -I reviewed and agree with nursing and triage notes Were old charts reviewed (outside hosp., previous admission, EMS record, old EKG, old radiological studies, urgent care reports/EKG's, fci records)? Report findings @ -No old charts were reviewed Differential Diagnosis (chest pain, altered mental status, abdominal pain women, abdominal pain men, vaginal bleeding, weakness, fever, dyspnea, syncope, headache, dizziness, GI bleed, back pain, seizure, CVA, palpatations, mental health)? @ - EKG interpreted by me (3pts min.). @ -As above X-rays interpreted by me (1pt min.). @ -Chest x-ray does not reveal acute abdomen CT interpreted by me (1pt min.). @ -None done U/S interpreted by me (1pt. min.). @ -None done What testing was considered but not performed or refused? (CT, X-rays, U/S, labs)? Why? @ -None What meds were considered but not given or refused? Why? @ -None Did you discuss the management of the patient with other professionals (professionals i.e. JUNI Restrepo, BREAD STACKER, lab, RT, psych nurse, manager social responsibility, block sawyer, te acher, administrative hearing officer, case finisher)? Give summary @ -Case was discussed with Dr. perez, who will admit covering Dr. Nicci Vásquez Was smoking cessation discussed for >3mins.? @ -No Was critical care preformed (if so, how long)? @ -31 minutes critical care time Were there social determinants of health that impacted care today? How? (Homelessness, low income, unemployed, alcoholism, drug addiction, transportation, low edu. Level, literacy, decrease access to med. care, [place] [facility], rehab)? @ -No Was there de-escalation of care discussed even if they declined (Discuss DNR or withdrawal of care, Hospice)? DNR status @ -No What co-morbidities impacted this encounter? (DM, HTN, Smoking, COPD, CAD, Cancer, CVA, ARF, Chemo, Hep., AIDS, mental health diagnosis, sleep apnea, morbid obesity)? @ -None Was patient admitted / discharged? Hospital course, mention meds given and rout e, prescriptions, significant lab abnormalities, going to OR and other pertinent info. @ -Patient reevaluated with heart rate of 110, improved, still irregular. Patient and family updated on results and plan. Patient will be admitted for further treatment and cardiac evaluation. Patient will be started on heparin. Undiagnosed new problem with uncertain prognosis? @ -No Drug Therapy requiring intensive monitoring for toxicity (Heparin, Nitro, Insulin, Cardizem)? @ -Patient requires monitoring with heparin and Cardizem drips. Were any procedures done? @ -No Diagnosis/symptom? @ -A flutter with RVR Acute, or Chronic, or Acute on Chronic? @ -Acute Uncomplicated (without systemic symptoms) or Complicated (systemic symptoms)? @ -default Side effects of treatment? @ -No Exacerbation, Progression, or Severe Exacerbation? @ -No Poses a threat to life or bodily function? How? (Chest pain, [place], [place], pneumonia, PE, COPD, DKA, ARF, appy, cholecystitis, CVA, Diverticulitis, Homicidal, Suicidal, threat to staff... and all critical care pts) @ -No - Lab Data Result diagrams: 01/24/23 17:42 01/24/23 17:42 Lab Results 01/24/23 01/24/23 01/24/23 Range/Units 17:42 17:42 17:42 WBC 3.2 L (3.8-10.6) k/uL RBC 4.46 (4.30-5.90) m/uL Hgb 13.3 (13.0-17.5) gm/dL Hct 38.3 L (39.0-53.0) % MCV 85.7 (80.0-100.0) fL MCH 29.8 (25.0-35.0) pg MCHC 34.8 (31.0-37.0) g/dL RDW 13.4 (11.5-15.5) % Plt Count 159 (150-450) k/uL MPV 6.9 Neutrophils % 70 % Lymphocytes % 20 % Monocytes % 6 % Eosinophils % 1 % Basophils % 0 % Neutrophils # 2.2 (1.3-7.7) k/uL Lymphocytes # 0.6 L (1.0-4.8) k/uL Monocytes # 0.2 (0-1.0) k/uL Eosinophils # 0.0 (0-0.7) k/uL Basophils # 0.0 (0-0.2) k/uL PT 10.0 (9.0-12.0) sec INR 0.9 (<1.2) APTT 23.6 (22.0-30.0) sec Sodium 135 L (137-145) mmol/L Potassium 3.9 (3.5-5.1) mmol/L Chloride 101 (98-107) mmol/L Carbon Dioxide 27 (22-30) mmol/L Anion Gap 7 mmol/L BUN 10 (9-20) mg/dL Creatinine 0.97 (0.66-1.25) mg/dL Est GFR (CKD-EPI)AfAm >90 (>60 ml/min/1.73 sqM) Est GFR (CKD-EPI)NonAf 83 (>60 ml/min/1.73 sqM) Glucose 94 (74-99) mg/dL Calcium 9.0 (8.4-10.2) mg/dL Magnesium 2.1 (1.6-2.3) mg/dL Total Bilirubin 0.3 (0.2-1.3) mg/dL AST 25 (17-59) U/L ALT 17 (4-49) U/L Alkaline Phosphatase 55 (38-126) U/L Troponin I (0.000-0.034) ng/mL NT-Pro-B Natriuret Pep pg/mL Total Protein 6.7 (6.3-8.2) g/dL Albumin 4.1 (3.5-5.0) g/dL TSH 3.860 (0.465-4.680) mIU/L Free T4 1.42 (0.78-2.19) ng/dL Free T3 pg/mL 2.7 L (2.8-5.3) pg/ml 01/24/23 01/24/23 Range/Units 17:42 17:42 WBC (3.8-10.6) k/uL RBC (4.30-5.90) m/uL Hgb (13.0-17.5) gm/dL Hct (39.0-53.0) % MCV (80.0-100.0) fL MCH (25.0-35.0) pg MCHC (31.0-37.0) g/dL RDW (11.5-15.5) % Plt Count (150-450) k/uL MPV Neutrophils % % Lymphocytes % % Monocytes % % Eosinophils % % Basophils % % Neutrophils # (1.3-7.7) k/uL Lymphocytes # (1.0-4.8) k/uL Monocytes # (0-1.0) k/uL Eosinophils # (0-0.7) k/uL Basophils # (0-0.2) k/uL PT (9.0-12.0) sec INR (<1.2) APTT (22.0-30.0) sec Sodium (137-145) mmol/L Potassium (3.5-5.1) mmol/L Chloride (98-107) mmol/L Carbon Dioxide (22-30) mmol/L Anion Gap mmol/L BUN (9-20) mg/dL Creatinine (0.66-1.25) mg/dL Est GFR (CKD-EPI)AfAm (>60 ml/min/1.73 sqM) Est GFR (CKD-EPI)NonAf (>60 ml/min/1.73 sqM) Glucose (74-99) mg/dL Calcium (8.4-10.2) mg/dL Magnesium (1.6-2.3) mg/dL Total Bilirubin (0.2-1.3) mg/dL AST (17-59) U/L ALT (4-49) U/L Alkaline Phosphatase (38-126) U/L Troponin I 0.020 (0.000-0.034) ng/mL NT-Pro-B Natriuret Pep 182 pg/mL Total Protein (6.3-8.2) g/dL Albumin (3.5-5.0) g/dL TSH (0.465-4.680) mIU/L Free T4 (0.78-2.19) ng/dL Free T3 pg/mL (2.8-5.3) pg/ml Critical Care Time Critical Care Time: Yes Total Critical Care Time: 31 Disposition Clinical Impression: Atrial flutter, Tachycardia Disposition: ADMITTED IP TO THIS HOSP Is patient prescribed a controlled substance at d/c from ED?: No Referrals: Bipin Mancia DO [Primary Care Provider] - 1-2 days Time of Disposition: 19:39
[2023-01-24] MEDS ORDERED: DILTIAZEM 125 MG in SODIUM CHLORIDE 0.9% 100 ML IV SCH (18:00)
[2023-01-24 18:02] LABS: Basophils % (A) 0 %; Eosinophils % (A) 1 %; HCT 38.3 % (39.0-53.0); HGB 13.3 gm/dL (13.0-17.5); Lymphocytes # (A) 0.6 k/uL (1.0-4.8); Lymphocytes % (A) 20 %; MCH 29.8 pg (25.0-35.0); MCHC 34.8 g/dL (31.0-37.0); MCV 85.7 fL (80.0-100.0); Mean Platelet Volume 6.9; Monocytes # (A) 0.2 k/uL (0-1.0); Monocytes % (A) 6 %; Neutrophils # (A) 2.2 k/uL (1.3-7.7); Neutrophils % (A) 70 %; Platelet Count 159 k/uL (150-450); RBC 4.46 m/uL (4.30-5.90); RDW 13.4 % (11.5-15.5); WBC 3.2 k/uL (3.8-10.6)
--- NOTE | 2023-01-24 18:13 | XR ---
EXAMINATION TYPE: XR chest 2V DATE OF EXAM: 01/24/2023 6:08 PM COMPARISON: Chest radiographs from 10/03/2021 TECHNIQUE: XR chest 2V Frontal and lateral views of the chest. CLINICAL INDICATION:Male, 62 years old with history of dysrhythmia; FINDINGS: Lungs/Pleura: There is no evidence of pleural effusion, focal consolidation, or pneumothorax. Pulmonary vascularity: Unremarkable. Heart/mediastinum: Cardiomediastinal silhouette is unremarkable. Musculoskeletal: No acute osseous pathology. IMPRESSION: No acute cardiopulmonary disease/process.
[2023-01-24 18:17] LABS: INR 0.9 (<1.2); Partial Thromboplastin Time 23.6 sec (22.0-30.0)
[2023-01-24 18:42] LABS: ALT 17 U/L (4-49); AST 25 U/L (17-59); African American GFR (CKD) >90 (>60 ml/min/1.73 sqM); Albumin 4.1 g/dL (3.5-5.0); Alkaline Phosphatase 55 U/L (38-126); Anion Gap 7 mmol/L; Blood Urea Nitrogen 10 mg/dL (9-20); Carbon Dioxide 27 mmol/L (22-30); Chloride 101 mmol/L (98-107); Glucose 94 mg/dL (74-99); Magnesium 2.1 mg/dL (1.6-2.3); Non-African American GFR(CKD) 83 (>60 ml/min/1.73 sqM); Potassium 3.9 mmol/L (3.5-5.1); Sodium 135 mmol/L (137-145); Total Bilirubin 0.3 mg/dL (0.2-1.3); Total Protein 6.7 g/dL (6.3-8.2)
[2023-01-24 18:58] LABS: T4, Free (Free Thyroxine) 1.42 ng/dL (0.78-2.19)
[2023-01-24] MEDS ORDERED: HEPARIN SODIUM 1,000 UN/ML (10ML VL) IV ONE (19:39)
[2023-01-24] MEDS ORDERED: HEPARIN SOD,PORK IN 0.45% NACL 25,000 UNIT in 0.45% NACL 1 250ML.BAG IV SCH (19:45)
[2023-01-24] MEDS ORDERED: HYDROcodone/APAP 5-325MG 1 EACH TAB PO PRN (19:54)
--- NOTE | 2023-01-24 22:34 | P.HPIM ---
History of Present Illness H&P Date: 01/24/23 The patient is a 62-year-old male with a PMH of hypertension and hypothyroidism who presents to the emergency room with complaints of palpitations, shortness of breath, and dizziness. The patient reports that over the past 1 month, he has had intermittent episodes of sudden onset palpitations which are then followed by shortness of breath as well as dizziness, lasting for a few minutes at a time and then resolving spontaneously. He denies any prior history of coronary artery disease. Denies experiencing chest discomfort, nausea, vomiting, diaphoresis. Patient states that he is relatively active and walks several miles a day. Patient reported feeling at his baseline at the time of interview. The patient underwent an extensive evaluation in the emergency room. Upon arrival in the ED, pulse was 163, BP 135/99, respiratory rate 18, and SpO2 99% on room air. EKG had revealed A. fib at 114 bpm with left axis deviation as reviewed by me. Chest x-ray was unremarkable. Laboratory evaluation revealed a WBC count of 3.2, sodium 135, potassium 3.9, BUN 10, creatinine 0.87, troponin 0.020, and proBNP 182 with TSH 3.8, and free T3 2 0.7. ED documentation reviewed and case discussed with ED provider. Review of systems: Pertinent positives and negatives as discussed in HPI, a complete review of systems was performed and all other systems are negative. Physical examination: Vital signs reviewed General: non toxic, no distress, appears at stated age, normal weight Derm: no unusual rashes/lesions, warm Head: atraumatic, normocephalic, symmetric Eyes: EOMI, no lid lag, anicteric sclera, pupils equal round reactive to light ENT: Nose and ears atraumatic Neck: No cervical lymphadenopathy, trachea midline, supple Mouth: no lip lesion, mucus membranes moist Cardiovascular: Tachycardic, irregularly irregular, no murmur, positive dorsalis pedis pulse bilateral, no edema Lungs: CTA bilateral, no rhonchi, no rales, no accessory muscle use Abdominal: soft, nontender to palpation, no guarding Ext: muscle strength 5 out of 5 in all 4 extremities grossly, no gross muscle atrophy, no contractures, Neuro: CN II-XI grossly intact, no gross focal neuro deficits Psych: Alert, oriented, appropriate affect Assessment: Newly diagnosed A. fib with RVR Leukopenia Chronic conditions: Hypothyroidism, hypertension Imaging: EKG had revealed A. fib at 114 bpm with left axis deviation as reviewed by me. Chest x-ray was unremarkable. Data Review: Laboratory evaluation revealed a WBC count of 3.2, sodium 135, potassium 3.9, BUN 10, creatinine 0.87, troponin 0.020, and proBNP 182 with TSH 3.8, and free T3 2 0.7 Plan: Cardiology consulted Continue with Cardizem infusion titrating up to a maximum of 10 mg an hour Continue with heparin infusion Obtain echocardiogram Cardiac monitoring DVT prophylaxis: Heparin infusion The patient is admitted with an anticipated greater than 2 midnight stay for evaluation of A. 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 History of Any Multi-Drug Resistant Organisms: None Reported Past Surgical History: Hernia Repair, Tonsillectomy Additional Past Surgical History / Comment(s): Bilateral inguinal hernia repairs, colonoscopies/benign polypectomy, RKAK bilateral eyes, hemorrhoidectomy, nasal reconstruction Past Anesthesia/Blood Transfusion Reactions: No Reported Reaction Additional Past Anesthesia/Blood Transfusion Reaction / Comment(s): unsure if pt has had any problems with anesthesia Past Psychological History: No Psychological Hx Reported Additional Psychological History / Comment(s): Pt resides with his spouse. He is independent. Smoking Status: Former smoker Past Alcohol Use History: Occasional Additional Past Alcohol Use History / Comment(s): Pt started smoking in 1973 and quit 12/02/12. Past Drug Use History: Marijuana - Past Family History Father Family Medical History: Dementia Additional Family Medical History / Comment(s): Father of dementia at the age of 94 yrs. Mother Family Medical History: No Reported History Additional Family Medical History / Comment(s): Mother of some sort of in testinal problem at the age of 48 or 49yrs. Medications and Allergies Home Medications Medication Instructions Recorded Confirmed Type ALPRAZolam [Xanax] 0.5 mg PO DAILY PRN 01/24/23 01/24/23 History Amoxic-Pot Clav 500-125 mg 1 tab PO Q12HR 01/24/23 01/24/23 History [Augmentin 500-125 mg] Cholecalciferol [Vitamin D3 (25 100 mcg PO DAILY@1200 01/24/23 01/24/23 History Mcg = 1000 Iu)] HYDROcodone/APAP 5-325MG [[place] 1 tab PO Q6H PRN 01/24/23 01/24/23 History 5-325] Ibuprofen [Motrin] 600 mg PO Q8HR PRN 01/24/23 01/24/23 History Levothyroxine Sodium [Synthroid] 88 mcg PO DAILY 01/24/23 01/24/23 History Magnesium 250 mg PO DAILY@1200 01/24/23 01/24/23 History Sildenafil Citrate [Viagra] 100 mg PO DAILY 01/24/23 01/24/23 History lisinopriL [Zestril] 30 mg PO DAILY 01/24/23 01/24/23 History Allergies Allergy/AdvReac Type Severity Reaction Status Date / Time amlodipine besylate AdvReac Swelling Verified 01/24/23 18:14 [From Norvasc] levofloxacin [From Levaquin] AdvReac FATIGUE, Verified 01/24/23 18:14 WEAKNESS AND DARK URINE montelukast sodium AdvReac CAUSED URI Verified 01/24/23 18:14 [facility] Physical Exam Vitals: Vital Signs Pulse Pulse Resp BP BP Pulse Ox 01/24/23 21:00 68 18 165/88 99 01/24/23 19:30 89 18 129/83 98 01/24/23 18:30 98 18 115/86 95 01/24/23 18:00 93 16 152/71 97 01/24/23 17:20 163 H 18 135/99 99 Intake and Output 01/24/23 01/24/23 01/24/23 06:59 14:59 22:59 Intake Total 540 Balance 540 Intake: Oral 540 Other: # Voids 0 Weight 89.811 kg Results CBC & Chem 7: 01/24/23 17:42 01/24/23 17:42 Labs: Abnormal Lab Results - Last 24 Hours (Table) 01/24/23 01/24/23 Range/Units 17:42 17:42 WBC 3.2 L (3.8-10.6) k/uL Hct 38.3 L (39.0-53.0) % Lymphocytes # 0.6 L (1.0-4.8) k/uL Sodium 135 L (137-145) mmol/L Free T3 pg/mL 2.7 L (2.8-5.3) pg/ml Thrombosis Risk Factor Assmnt - Choose All That Apply Any of the Below Risk Factors Present?: No Each Risk Factor Represents 2 Points: Age 61-74 years Other congenital or acquired thrombophilia - If yes, enter type in comment: No Thrombosis Risk Factor Assessment Total Risk Factor Score: 2 Thrombosis Risk Factor Assessment Level: Low Risk
[2023-01-25 03:53] VITALS: RESP 16
[2023-01-25] MEDS ORDERED: LEVOTHYROXINE 88 MCG TAB PO SCH (06:30)
[2023-01-25] MEDS: ASPIRIN 325 MG TAB PO SCH ×2 (08:12→08:25)
[2023-01-25 08:26] VITALS: BP 150/69; PULSE 86; TEMP 98.1
[2023-01-25 08:53] LABS: Mean Platelet Volume 7.6; Platelet Count 146 k/uL (150-450)
[2023-01-25] MEDS ORDERED: lisinopriL 10 MG TAB PO SCH (09:00)
[2023-01-25] MEDS ORDERED: METOPROLOL SUCCINATE (ER) 25 MG TAB.ER.24H PO SCH (09:45)
[2023-01-25] MEDS ORDERED: AMOXIC-POT CLAV 500-125 MG 1 EACH TAB PO SCH (09:45)
--- NOTE | 2023-01-25 09:57 | CA ---
Transthoracic Echo Report Name: Arnodl Rao Age: 62 Gender: M : 1960 Exam Date: 01/25/2023 07:36 Exam Location: [facility] Ht (in): 69 Wt (lb): 198 Ordering Physician: Ronald Orourke DO Attending/Referring Phys: Fishing Tool Operator Virginia Randall RDCS Procedure CPT: Indications: New-onset atrial flutter Cardiac Hx: Technical Quality: Good Contrast 1: Total Dose (mL): Contrast 2: Total Dose (mL): MEASUREMENTS (Male / Female) Normal Values 2D ECHO LV Diastolic Diameter PLAX 4.8 cm 4.2 - 5.9 / 3.9 - 5.3 cm LV Systolic Diameter PLAX 3.6 cm IVS Diastolic Thickness 1.3 cm 0.6 - 1.0 / 0.6 - 0.9 cm LVPW Diastolic Thickness 1.4 cm 0.6 - 1.0 / 0.6 - 0.9 cm LV Relative Wall Thickness 0.5 RV Internal Dim ED PLAX 3.4 cm LA Systolic Diameter LX 3.8 cm 3.0 - 4.0 / 2.7 - 3.8 cm LV Diastolic Volume MOD BP 77.8 cm??? 67 - 155 / 56 - 104 cm??? LV Systolic Volume MOD BP 29.1 cm??? 22 - 58 / 19 - 49 cm??? LV Ejection Fraction MOD BP 62.6 % >= 55 % LV Diastolic Volume MOD 4C 75.1 cm??? LV Systolic Volume MOD 4C 41.7 cm??? LV Ejection Fraction MOD 4C 44.5 % LV Diastolic Length 4C 8.2 cm LV Systolic Length 4C 6.7 cm LV Diastolic Volume MOD 2C 107.7 cm??? LV Systolic Volume MOD 2C 57.2 cm??? LV Ejection Fraction MOD 2C 46.9 % LV Diastolic Length 2C 8.6 cm LV Systolic Length 2C 6.6 cm LA Volume 56.4 cm??? 18 - 58 / 22 - 52 cm??? M-MODE Aortic Root Diameter MM 3.5 cm MV E Point Septal Separation 0.4 cm AV Cusp Separation MM 2.4 cm DOPPLER AV Peak Velocity 108.3 cm/s AV Peak Gradient 4.7 mmHg MV Area PHT 4.1 cm??? Mitral E Point Velocity 76.0 cm/s Mitral A Point Velocity 58.9 cm/s Mitral E to A Ratio 1.3 MV Deceleration Time 186.9 ms MV E' Velocity 10.5 cm/s Mitral E to MV E' Ratio 7.2 FINDINGS Left Ventricle Left ventricular ejection fraction is estimated at 50-55 %. Left ventricular cavity size normal. Mildly increased septal wall thickness. Right Ventricle Mild right ventricular dilatation. No TR unable to estimate the right ventricular systolic pressure. Right Atrium Normal right atrial size. Left Atrium Normal left atrial size. Mitral Valve Structurally normal mitral valve. No mitral stenosis, regurgitation or prolapse. Aortic Valve Trileaflet aortic valve. Mild aortic regurgitation. Tricuspid Valve Structurally normal tricuspid valve. No tricuspid regurgitation. Pulmonic Valve Structurally normal pulmonic valve. No pulmonic regurgitation. Pericardium Normal pericardium. No pericardial effusion. Aorta Normal size aortic root and proximal ascending aorta. CONCLUSIONS Normal LV systolic function Previewed by: Dr. Ezio Hough MD (Electronically Signed) Final Date: 25 January 2023 09:56
--- NOTE | 2023-01-25 10:45 | P.DS ---
Providers Date of admission: 01/24/23 19:41 Expected date of discharge: 01/25/23 Attending physician: Marifer Felder MD Consults: 01/24/23 19:40 Consult Physician Urgent Consulting Provider: Ezio Hough Consult Reason/Comments: a flutter w rvr Do you want consulting provider notified?: Yes Primary care physician: Bipin Mancia [facility] Course: Discharge Diagnosis: Atrial Fibrillation with RVR Leukopenia Hypothyroidism HTN Hospital Course: Patient is a 62-year-old male with a past medical history of hypertension and hypothyroidism who presented to the emergency department with complaints of palpitations. In the ER he underwent an extensive evaluation. He was found to have atrial fibrillation with rapid ventricular response. He was started on a Cardizem drip and heparin drip. His labs were within normal limits and TSH was normal at 3.8, troponin was normal at 0.020. He was seen by cardiology. He c onverted to normal sinus rhythm. He was started on metoprolol. His chadsvasc was 1. He underwent an echocardiogram which showed a preserved ejection fraction and no significant valvular disease. He was determined stable for discharge home. Follow-up: Dr. Ahuja in 1 week, Dr. Mancia in 2-3 days, aspirin 325 mg daily, metoprolol 25 mg daily. Patient seen and examined at bedside.Doing well, no complaints currently. Vital signs reviewed and stable. General: nontoxic, no distress, appears at stated age Derm: warm, dry Head: atraumatic, normocephalic, symmetric Eyes: EOMI, no lid lag, anicteric sclera Mouth: no lip lesion, mucus membranes moist Cardiovascular: S1S2 reg, no murmur, positive posterior tibial pulse bilateral, Lungs: CTA bilateral, no rhonchi, no rales , no accessory muscle use Abdominal: soft, nontender to palpation, no guarding, no appreciable organomegaly Ext: no gross muscle atrophy, no edema, no contractures Neuro: CN II-XI grossly intact, no focal neuro deficits Psych: Alert, oriented, appropriate affect A total of 25 minutes of time were spent preparing this complex discharge summary. Patient was discharged on 01/25/23. This dictation was prepared using [employer] voice recognition software. Though every attempt is made to correct errors during during dictation some may still exist. Plan - Discharge Summary Discharge Rx Participant: No New Discharge Prescriptions: New Aspirin 325 mg PO DAILY tab Metoprolol Succinate (ER) [Toprol XL] 25 mg PO DAILY #30 tab Continue lisinopriL [Zestril] 30 mg PO DAILY HYDROcodone/APAP 5-325MG [[place] 5-325] 1 tab PO Q6H PRN PRN Reason: Pain Amoxic-Pot Clav 500-125 mg [Augmentin 500-125 mg] 1 tab PO Q12HR ALPRAZolam [Xanax] 0.5 mg PO DAILY PRN PRN Reason: Anxiety Sildenafil Citrate [Viagra] 100 mg PO DAILY Levothyroxine Sodium [Synthroid] 88 mcg PO DAILY Ibuprofen [Motrin] 600 mg PO Q8HR PRN PRN Reason: Fever And/ Or Pain Magnesium 250 mg PO DAILY@1200 Cholecalciferol [Vitamin D3 (25 Mcg = 1000 Iu)] 100 mcg PO DAILY@1200 Discharge Medication List ALPRAZolam [Xanax] 0.5 mg PO DAILY PRN 01/24/23 [History] Amoxic-Pot Clav 500-125 mg [Augmentin 500-125 mg] 1 tab PO Q12HR 01/24/23 [History] Cholecalciferol [Vitamin D3 (25 Mcg = 1000 Iu)] 100 mcg PO DAILY@1200 01/24/23 [History] HYDROcodone/APAP 5-325MG [[place] 5-325] 1 tab PO Q6H PRN 01/24/23 [History] Ibuprofen [Motrin] 600 mg PO Q8HR PRN 01/24/23 [History] Levothyroxine Sodium [Synthroid] 88 mcg PO DAILY 01/24/23 [History] Magnesium 250 mg PO DAILY@1200 01/24/23 [History] Sildenafil Citrate [Viagra] 100 mg PO DAILY 01/24/23 [History] lisinopriL [Zestril] 30 mg PO DAILY 01/24/23 [History] Aspirin 325 mg PO DAILY tab 01/25/23 [Rx] Metoprolol Succinate (ER) [Toprol XL] 25 mg PO DAILY #30 tab 01/25/23 [Rx] Follow up Appointment(s)/Referral(s): Samuel Ahuja DO [STAFF PHYSICIAN] - 1 Week Bipin Mancia DO [Primary Care Provider] - 1-2 days Patient Instructions/Handouts: A-fib (Atrial Fibrillation) (DC) Activity/Diet/Wound Care/Special Instructions: Activity: as tolerated Diet: Heart Healthy Special Instructions: You should not use Aspirin 325 mg with motrin 800 mg on a residential basis with appropriate gastritis prophylaxis. You can continue to use these short term while you recover from your tooth extraction. If you continue to require both manager long term care please discuss with Dr. Albright as you may require acid suppressing medications. Discharge Disposition: HOME SELF-CARE
--- NOTE | 2023-01-25 11:33 | P.CRDCN ---
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 Denies any significant family history. Denies smoking, drinks alcohol occasionally. Denies drug use. He reports that over the past 1 month he has been trying to get more active and has been walking more. Approximately 2 weeks ago he walked 6.5 miles and afterward he felt his heart racing when he checked it at home his heart rate was in the 150s and this lasted approximately 2 hours. Then yesterday he developed the same thing with palpitations and elevated heart rates this episode lasted approximately 3 hours. Labs reviewed: Troponin is negative 3, WBC 3.2, hemoglobin 13.3, platelets 159, TSH was normal, creatinine 0.97. He was started on a Cardizem drip and also a heparin drip. Initial EKG showed a flutter with RVR on 114 beats per minutes. He did ultimately convert into a normal sinus rhythm. Chest x-ray with no acute findings. He reports feeling better this morning. Denies any chest pain, shortness of breath, dizziness, syncope. REVIEW OF SYSTEMS: No fever or chills. No cough or expectoration. No diaphoresis. Patient denies headache, dizziness, blurred vision, double vision. Patient denies any stomach discomfort. No nausea, vomiting. No hematochezia. No hematemesis. Denies any black stools or blood in his stools. Denies dysuria or hematuria. No muscle weakness or numbness. No chest pain or pressure. PHYSICAL EXAMINATION: This is a 62-year-old male in no apparent distress at the time of my examination. HEENT: Head is atraumatic, normocephalic. Pupils are equal, round. Sclerae anicteric. Conjunctivae are clear. Mucous membranes of the mouth are moist. Neck is supple. There is no jugular venous distention. No carotid bruit is heard. CHEST EXAMINATION: Lungs are clear to auscultation. No chest wall tenderness is noted on palpation or with deep breathing. HEART EXAMINATION: Heart regular rate and rhythm. S1, S2 heard. No murmurs, gallops or rub. ABDOMEN: Soft, nontender. Bowel sounds are heard. No organomegaly noted. EXTREMITIES: 2+ peripheral pulses with no evidence of peripheral edema and no calf tenderness noted. NEUROLOGIC EXAMINATION: Patient is awake, alert and oriented x3. IMPRESSION AND PLAN: New-onset atrial fibrillation Hypertension Hypothyroidism Palpitations PLAN: We discussed the nature of atrial fibrillation. We will stop lisinopril, start Toprol 25 mg by mouth daily for rate control. [id number] score is 1 for hypertension, discussed the anticoagulation is not necessarily recommended at this point's, recommend aspirin 81 mg by mouth daily. However did discuss that when he reaches age of 63 would recommend starting anticoagulation for stroke prevention at that time. Echo with EF 5055%. He currently remains normal sinus rhythm. Okay to discharge from a cardiology standpoint. Follow-up in clinic in 1 week. I am dictating on behalf of Dr. Samuel Ahuja's history/physical and assessment/plan. 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 History of Any Multi-Drug Resistant Organisms: None Reported Past Surgical History: Hernia Repair, Tonsillectomy Additional Past Surgical History / Comment(s): Bilateral inguinal hernia repairs , colonoscopies/benign polypectomy, RKAK bilateral eyes, hemorrhoidectomy, nasal reconstruction Past Anesthesia/Blood Transfusion Reactions: No Reported Reaction Additional Past Anesthesia/Blood Transfusion Reaction / Comment(s): unsure if pt has had any problems with anesthesia Past Psychological History: No Psychological Hx Reported Additional Psychological History / Comment(s): Pt resides with his spouse. He is independent. Smoking Status: Former smoker Past Alcohol Use History: Occasional Additional Past Alcohol Use History / Comment(s): Pt started smoking in 1973 and quit 12/02/12. Past Drug Use History: Marijuana - Past Family History Father Family Medical History: Dementia Additional Family Medical History / Comment(s): Father of dementia at the age of 94 yrs. Mother Family Medical History: No Reported History Additional Family Medical History / Comment(s): Mother of some sort of intestinal problem at the age of 48 or 49yrs. Medications and Allergies Home Medications Medication Instructions Recorded Confirmed Type ALPRAZolam [Xanax] 0.5 mg PO DAILY PRN 01/24/23 01/24/23 History Amoxic-Pot Clav 500-125 mg 1 tab PO Q12HR 01/24/23 01/24/23 History [Augmentin 500-125 mg] Cholecalciferol [Vitamin D3 (25 100 mcg PO DAILY@1200 01/24/23 01/24/23 History Mcg = 1000 Iu)] HYDROcodone/APAP 5-325MG [[place] 1 tab PO Q6H PRN 01/24/23 01/24/23 History 5-325] Ibuprofen [Motrin] 600 mg PO Q8HR PRN 01/24/23 01/24/23 History Levothyroxine Sodium [Synthroid] 88 mcg PO DAILY 01/24/23 01/24/23 History Magnesium 250 mg PO DAILY@1200 01/24/23 01/24/23 History Sildenafil Citrate [Viagra] 100 mg PO DAILY 01/24/23 01/24/23 History lisinopriL [Zestril] 30 mg PO DAILY 01/24/23 01/24/23 History Aspirin 325 mg PO DAILY tab 01/25/23 Rx Metoprolol Succinate (ER) [Toprol 25 mg PO DAILY #30 tab 01/25/23 Rx XL] Allergies Allergy/AdvReac Type Severity Reaction Status Date / Time amlodipine besylate AdvReac Swelling Verified 01/24/23 18:14 [From [facility]] [facility] AdvReac FATIGUE, Verified 01/24/23 18:14 WEAKNESS AND DARK URINE montelukast sodium AdvReac CAUSED URI Verified 01/24/23 18:14 [From [facility]] Physical Exam Vitals: Vital Signs Temp Pulse Pulse Resp BP BP Pulse Ox 01/25/23 08:26 98.1 F 86 16 150/69 98 01/25/23 08:02 98 01/25/23 03:51 88 16 135/78 98 01/25/23 02:00 74 18 01/25/23 00:00 97.5 F L 74 18 151/75 98 01/24/23 21:00 68 18 165/88 99 01/24/23 19:30 89 18 129/83 98 01/24/23 18:30 98 18 115/86 95 01/24/23 18:00 93 16 152/71 97 01/24/23 17:20 163 H 18 135/99 99 Intake and Output 01/24/23 01/25/23 01/25/23 22:59 06:59 14:59 Intake Total 540 57.81 69.667 Balance 540 57.81 69.667 Intake: Intake, IV Titration 57.81 69.667 Amount Diltiazem 125 mg In 69.667 Sodium Chloride 0.9% 100 ml @ 5 MG/HR 5 mls/hr IV .Q24H [facility] Rx#:[id number] Heparin Sod,Pork in 0.45% 57.81 NaCl 25,000 unit In 0.45 % NaCl 1 250ml.bag @ 11. 13 UNITS/KG/HR 9.996 mls/ hr IV .Q24H [facility] Rx#: [id number] Oral 540 Other: Voiding Method Toilet Toilet Urinal Urinal # Voids 0 2 Weight 89.811 kg Results 01/25/23 08:24 01/24/23 17:42 Cardiac Enzymes 01/24/23 01/24/23 01/24/23 Range/Units 17:42 17:42 21:14 AST 25 (17-59) U/L Troponin I 0.020 0.028 (0.000-0.034) ng/mL 01/25/23 Range/Units 01:17 AST (17-59) U/L Troponin I 0.026 (0.000-0.034) ng/mL Coagulation 01/24/23 01/25/23 01/25/23 Range/Units 17:42 01:17 08:24 PT 10.0 (9.0-12.0) sec APTT 23.6 59.2 H 51.8 H (22.0-30.0) sec CBC 01/24/23 01/25/23 Range/Units 17:42 08:24 WBC 3.2 L (3.8-10.6) k/uL RBC 4.46 (4.30-5.90) m/uL Hgb 13.3 (13.0-17.5) gm/dL Hct 38.3 L (39.0-53.0) % Plt Count 159 146 L (150-450) k/uL Comprehensive Metabolic Panel 01/24/23 Range/Units 17:42 Sodium 135 L (137-145) mmol/L Potassium 3.9 (3.5-5.1) mmol/L Chloride 101 (98-107) mmol/L Carbon Dioxide 27 (22-30) mmol/L BUN 10 (9-20) mg/dL Creatinine 0.97 (0.66-1.25) mg/dL Glucose 94 (74-99) mg/dL Calcium 9.0 (8.4-10.2) mg/dL AST 25 (17-59) U/L ALT 17 (4-49) U/L Alkaline Phosphatase 55 (38-126) U/L Total Protein 6.7 (6.3-8.2) g/dL Albumin 4.1 (3.5-5.0) g/dL Current Medications Generic Name Dose Route Start Last Admin Trade Name Freq PRN Reason Stop Dose Admin Hydrocodone Bitart/Acetaminophen 1 each 01/24/23 19:54 01/25/23 08:17 Hydrocodone/Apap 5-325mg 1 Each Tab PO 1 each Q6H PRN Administration Pain Aspirin 325 mg 01/25/23 09:00 01/25/23 08:25 Aspirin 325 Mg Tab PO Not Given DAILY JAMEL Diltiazem HCl 125 mg/ Sodium 125 mls @ 5 mls/hr 01/24/23 18:00 01/25/23 08:05 Chloride IV 0 mg/hr .Q24H JAMEL 0 mls/hr Infusion 5 MG/HR Heparin Sodium/Sodium Chloride 250 mls @ 9.996 mls/hr 01/24/23 19:45 01/25/23 02:00 25,000 unit/ Sodium Chloride IV 11.13 units/kg/hr .Q24H JAMEL 9.996 mls/hr Titration Protocol 11.13 UNITS/KG/HR Levothyroxine Sodium 88 mcg 01/25/23 06:30 01/25/23 06:16 Levothyroxine 88 Mcg Tab PO 88 mcg DAILY@0630 JAMEL Administration Lisinopril 30 mg 01/25/23 09:00 01/25/23 08:12 Lisinopril 10 Mg Tab PO 30 mg DAILY JAMEL Administration Magnesium Oxide 400 mg 01/25/23 12:00 Magnesium Oxide 400 Mg Tab PO DAILY@1200 JAMEL Intake and Output 01/24/23 01/25/23 01/25/23 22:59 06:59 14:59 Intake Total 540 57.81 69.667 Balance 540 57.81 69.667 Intake: Intake, IV Titration 57.81 69.667 Amount Diltiazem 125 mg In 69.667 Sodium Chloride 0.9% 100 ml @ 5 MG/HR 5 mls/hr IV .Q24H J[facility]EL Rx#:[id number] Heparin Sod,Pork in 0.45% 57.81 NaCl 25,000 unit In 0.45 % NaCl 1 250ml.bag @ 11. 13 UNITS/KG/HR 9.996 mls/ hr IV .Q24H [facility] Rx#: [id number] Oral 540 Other: Voiding Method Toilet Toilet Urinal Urinal # Voids 0 2 Weight 89.811 kg 01/25/23 08:24 01/24/23 17:42
[2023-01-25] MEDS ORDERED: MAGNESIUM OXIDE 400 MG TAB PO SCH (12:00)
[2023-01-25 16:43] LABS: Chol/HDL Ratio 4.32 Ratio; LDL Cholesterol,Calculated 183.2 mg/dL (0.0-131.0)
== END 2023-01-25 11:21 | disposition home or self-care (01) ==
LOC: EC 17:18 → INTOOBSV 19:41 → 3SCARD 19:41
PROVIDERS: ADMIT Internal Medicine; ATTEND Internal Medicine
DX: I48.91 Unspecified atrial fibrillation (principal); D72.819 Decreased white blood cell count, unspecified; J45.909 Unspecified asthma, uncomplicated; E78.5 Hyperlipidemia, unspecified; I10 Essential (primary) hypertension; G47.33 Obstructive sleep apnea (adult) (pediatric); G89.29 Other chronic pain; M54.9 Dorsalgia, unspecified; E03.9 Hypothyroidism, unspecified; M10.9 Gout, unspecified; Z85.810 Personal history of malignant neoplasm of tongue; Z85.89 Personal history of malignant neoplasm of other organs and systems; Z87.891 Personal history of nicotine dependence; Z79.82 Long term (current) use of aspirin; Z79.890 Hormone replacement therapy; Z79.899 Other long term (current) drug therapy; Z88.1 Allergy status to other antibiotic agents
CPT/HCPCS: 96366 ×2; 96365; 96375; 99285; 36415; 94760; 93005; 93306; 84439; 84481; 83880; 80061; 80053; 83735; 84443; 84484 ×2; 85025; 85049; 85610; 85730 ×2; 71046; G0378 ×2; J1644 ×2

== ENCOUNTER 2023-04-10 10:49 | Emergency (ER) | payer OTHER, BC ==
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
[2023-04-10 11:02] VITALS: TEMP 98.1
[2023-04-10] MEDS ORDERED: DIPH,PERTUS(ACELL)TETVAC-LF 0.5 ML VIAL IM ONE (11:27)
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
--- NOTE | 2023-04-10 13:53 | XR ---
EXAMINATION TYPE: XR chest 2V DATE OF EXAM: 04/10/2023 COMPARISON: 01/24/23 HISTORY: Shortness of breath TECHNIQUE: Frontal and lateral views of the chest are obtained. FINDINGS: Scattered senescent parenchymal changes noted. Hyperinflation compatible with COPD. No evidence for infiltrate. No evidence for atelectasis. Heart size is stable. Mediastinal structures are stable and grossly unremarkable. No evidence for hilar prominence. Degenerative changes dorsal spine. IMPRESSION: 1. No evidence for acute pulmonary disease.
--- NOTE | 2023-04-10 13:59 | XR ---
EXAMINATION TYPE: XR hand complete LT DATE OF EXAM: 04/10/2023 CLINICAL HISTORY: pain TECHNIQUE: Frontal, lateral and oblique images of the left hand are obtained. COMPARISON: None. FINDINGS: There is no acute fracture/dislocation evident. The joint spaces appear within normal limi ts. The overlying soft tissue appears unremarkable. IMPRESSION: There is no acute fracture or dislocation. ICD 10 NO FRACTURE, INITIAL EVALUATION
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
[2023-04-10] MEDS ORDERED: MORPHINE SULFATE 4 MG/ML SYRINGE IV STA (16:27)
[2023-04-10] MEDS ORDERED: ACETAMINOPHEN TAB 500 MG TAB PO STA (16:59)
[2023-04-10 17:04] VITALS: BP 152/84
[2023-04-10 17:10] VITALS: PULSE 76; RESP 20
== END 2023-04-10 17:20 | disposition other institution (70) ==
LOC: EC 10:49
DX: S02.2XXA Fracture of nasal bones, initial encounter for closed fracture (principal); S06.5XAA Traumatic subdural hemorrhage with loss of consciousness status unknown, initial encounter; J45.909 Unspecified asthma, uncomplicated; I10 Essential (primary) hypertension; Z79.899 Other long term (current) drug therapy; Z88.1 Allergy status to other antibiotic agents; Z88.8 Allergy status to other drugs, medicaments and biological substances; Z87.891 Personal history of nicotine dependence; Z23 Encounter for immunization; V28.49XA Other motorcycle driver injured in noncollision transport accident in traffic accident, initial encounter; Y92.480 Sidewalk as the place of occurrence of the external cause
CPT/HCPCS: 93005; 73130; 71046; 72125; 70486; 70450; 70551; 90715; 99285; 96374; 90471; J3360

== ENCOUNTER → 2023-09-19 | Outpatient (CLI) | payer MEDICARE, OTHER ==
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
== END | disposition home or self-care (01) ==
LOC: RADUSWWP 10:40
PROVIDERS: ATTEND Family Medicine
DX: M79.604 Pain in right leg (principal); M79.605 Pain in left leg; I48.0 Paroxysmal atrial fibrillation
CPT/HCPCS: 93922

== ENCOUNTER 2023-12-06 13:25 | Emergency (ER) | payer MEDICARE, OTHER ==
[2023-12-06 13:56] VITALS: TEMP 98.3
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
[2023-12-06 14:42] LABS: Basophils % (A) 0 %; Eosinophils % (A) 1 %; HCT 35.7 % (39.0-53.0); HGB 12.6 gm/dL (13.0-17.5); Lymphocytes # (A) 0.7 k/uL (1.0-4.8); Lymphocytes % (A) 21 %; MCH 30.9 pg (25.0-35.0); MCHC 35.2 g/dL (31.0-37.0); MCV 87.6 fL (80.0-100.0); Mean Platelet Volume 6.9; Monocytes # (A) 0.2 k/uL (0-1.0); Monocytes % (A) 6 %; Neutrophils # (A) 2.4 k/uL (1.3-7.7); Neutrophils % (A) 71 %; Platelet Count 200 k/uL (150-450); RBC 4.08 m/uL (4.30-5.90); RDW 12.9 % (11.5-15.5); WBC 3.3 k/uL (3.8-10.6)
[2023-12-06 14:52] LABS: INR 0.9 (<1.2); Partial Thromboplastin Time 22.5 sec (22.0-30.0); Prothrombin Time 10.2 sec (10.0-12.5)
[2023-12-06 15:22] LABS: ALT 12 U/L (4-49); AST 21 U/L (17-59); African American GFR (CKD) >90 (>60 ml/min/1.73 sqM); Albumin 3.9 g/dL (3.5-5.0); Alkaline Phosphatase 65 U/L (38-126); Anion Gap 4 mmol/L; Blood Urea Nitrogen 14 mg/dL (9-20); Calcium 9.1 mg/dL (8.4-10.2); Carbon Dioxide 30 mmol/L (22-30); Chloride 105 mmol/L (98-107); Glucose 116 mg/dL (74-99); Non-African American GFR(CKD) 81 (>60 ml/min/1.73 sqM); Potassium 3.8 mmol/L (3.5-5.1); Sodium 139 mmol/L (137-145); Total Bilirubin 0.4 mg/dL (0.2-1.3); Total Protein 6.3 g/dL (6.3-8.2)
--- NOTE | 2023-12-06 15:30 | CT ---
EXAMINATION TYPE: CT angio head neck DATE OF EXAM: 12/06/2023 COMPARISON: CT brain same day HISTORY: 63-year-old male intracranial bleed TECHNIQUE: Contiguous axial scanning of the head and neck performed with IV Contrast, patient injecte d with 65 mL of Isovue 300. Coronal and sagittal MIP reconstructions performed. 3-D reconstructions g enerated on a dedicated workstation. CT DLP: 478.9 mGycm Automated exposure control for dose reduction was used. FINDINGS: Neck: Mild atherosclerotic arch calcifications. Conventional arch vessel branching anatomy. Moderate advanced chronic calcifications at the origin of the bilateral vertebral arteries. Vertebral arteries are codominant and otherwise patent throughout their course. There is mild atherosclerotic change in the bilateral carotid bifurcations with mild, less than 15% n arrowing at the left carotid bulb. No significant narrowing of the right carotid bulb. The remainder of the bilateral common and internal carotid arteries are patent. NASCET criteria was utilized. Head: Moderate focal stenoses at the V3/V4 junction of the bilateral vertebral arteries. Slightly hypoplast ic V4 segment left vertebral artery after the PICA takeoff. Severe focal stenosis versus occlusion P1 segment left BARBER STYLIST, coronal image 41 and thin cut axial serie s 409 images 155 through 157. A patent left posterior communicating artery is noted. Remainder of the posterior circulation appears patent. Dural venous sinuses are patent. There are moderate segmental stenoses throughout the bilateral carotid siphons or metastatic calcific ation. Remainder of the anterior circulation is otherwise patent. Moderate mucosal thickening throughout the ethmoid air cells and bilateral maxillary sinuses. Fluid within the left mastoid air cells. IMPRESSION: NECK: 1. MILD ATHEROSCLEROTIC CHANGE OF THE BILATERAL CAROTID BIFURCATIONS. MILD, LESS THAN 15% NARROWING L EFT CAROTID BULB. NO HEMODYNAMICALLY SIGNIFICANT STENOSIS. 2. MODERATE ATHEROSCLEROTIC NARROWING AT THE ORIGIN OF THE BILATERAL VERTEBRAL ARTERIES. HEAD: 3. Severe focal stenosis versus occlusion of the P1 segment left BARBER STYLIST. There is a patent left posterio r communicating artery. 4. Moderate atherosclerotic stenoses throughout the bilateral carotid siphons. 5. Focal moderate stenoses at the V3/V4 junction of the bilateral vertebral arteries. 6. Otherwise, no large vessel arterial occlusion or aneurysmal change is seen. 7. Moderate chronic ethmoid and maxillary sinus disease. 8. Partial opacification left mastoid air cells. Correlate for any mastoid pain to exclude mastoiditi s.
[2023-12-06] MEDS: hydrALAZINE HCL 20 MG/ML 1 ML VIAL IVP STA (15:45)
[2023-12-06 15:56] VITALS: BP 172/92
[2023-12-06 16:28] VITALS: PULSE 87; RESP 18
== END 2023-12-06 16:04 | disposition left against medical advice (07) ==
LOC: EC 13:25
DX: I61.0 Nontraumatic intracerebral hemorrhage in hemisphere, subcortical (principal); I10 Essential (primary) hypertension; J45.909 Unspecified asthma, uncomplicated; G47.33 Obstructive sleep apnea (adult) (pediatric); Z79.899 Other long term (current) drug therapy; Z87.891 Personal history of nicotine dependence; Z88.1 Allergy status to other antibiotic agents; Z88.8 Allergy status to other drugs, medicaments and biological substances; Z53.29 Procedure and treatment not carried out because of patient's decision for other reasons
CPT/HCPCS: 36415; 80053; 85025; 85610; 85730; 70496; 70498; 99285; 96374; J0360; Q9967

== ENCOUNTER → 2023-12-06 | Outpatient (CLI) | payer MEDICARE, OTHER ==
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
== END | disposition home or self-care (01) ==
LOC: RADCTMAIN 11:54
PROVIDERS: ATTEND Family Medicine
DX: J34.89 Other specified disorders of nose and nasal sinuses (principal); H74.8X2 Other specified disorders of left middle ear and mastoid; Z87.820 Personal history of traumatic brain injury; Z86.79 Personal history of other diseases of the circulatory system
CPT/HCPCS: 70450

== ENCOUNTER 2024-04-29 19:01 | Emergency (ER) | payer MEDICARE, OTHER ==
[2024-04-29 19:37] VITALS: TEMP 97.6
--- NOTE | 2024-04-29 20:45 | XR ---
EXAMINATION TYPE: XR chest 2V DATE OF EXAM: 04/29/2024 8:42 PM CLINICAL INDICATION:Male, 63 years old with history of difficulty breathing; [facility] COMPARISON: Chest radiographs from 04/10/2023 TECHNIQUE: XR chest 2V Frontal view of the chest. FINDINGS: Lungs/Pleura: There is no evidence of pleural effusion, focal consolidation, or pneumothorax. Pulmonary vascularity: Unremarkable. Heart/mediastinum: Cardiomediastinal silhouette is unremarkable. Musculoskeletal: No acute osseous pathology. IMPRESSION: No acute cardiopulmonary disease/process.
[2024-04-29 21:30] LABS: Basophils % (A) 1 %; Eosinophils % (A) 0 %; HCT 30.1 % (39.0-53.0); HGB 10.5 gm/dL (13.0-17.5); Lymphocytes # (A) 0.3 k/uL (1.0-4.8); Lymphocytes % (A) 9 %; MCH 31.9 pg (25.0-35.0); MCHC 35.1 g/dL (31.0-37.0); Mean Platelet Volume 6.5; Monocytes # (A) 0.2 k/uL (0-1.0); Monocytes % (A) 6 %; Neutrophils # (A) 2.7 k/uL (1.3-7.7); Neutrophils % (A) 82 %; Platelet Count 249 k/uL (150-450); Poikilocytosis Slight; RDW 15.8 % (11.5-15.5); WBC 3.3 k/uL (3.8-10.6)
[2024-04-29 21:41] LABS: ALT 22 U/L (4-49); AST 21 U/L (17-59); African American GFR (CKD) >90 (>60 ml/min/1.73 sqM); Albumin 3.7 g/dL (3.5-5.0); Alkaline Phosphatase 71 U/L (38-126); Anion Gap 6 mmol/L; Blood Urea Nitrogen 11 mg/dL (9-20); Calcium 9.4 mg/dL (8.4-10.2); Carbon Dioxide 27 mmol/L (22-30); Chloride 103 mmol/L (98-107); Glucose 110 mg/dL (74-99); Non-African American GFR(CKD) >90 (>60 ml/min/1.73 sqM); Potassium 3.3 mmol/L (3.5-5.1); Sodium 136 mmol/L (137-145); Total Bilirubin 0.7 mg/dL (0.2-1.3); Total Protein 5.7 g/dL (6.3-8.2)
[2024-04-29 21:49] LABS: NT-Pro-B-Type Natriuretic Pept 86 pg/mL
[2024-04-29 21:54] LABS: INR 0.9 (<1.2)
[2024-04-29 21:55] LABS: Partial Thromboplastin Time 22.3 sec (22.0-30.0); Prothrombin Time 10.1 sec (10.0-12.5)
--- NOTE | 2024-04-29 22:07 | ED ---
SOB HPI - General Source: patient, EMS Mode of arrival: EMS <Kierra Lim - Last Filed: 04/29/24 22:53> <Robert Gonzalez - Last Filed: 04/30/24 02:10> - General Chief Complaint: Shortness of Breath Stated Complaint: ERIK Time Seen by Provider: 04/29/24 19:33 - History of Present Illness Initial Comments: 63-year-old male with past medical history of glioblastoma who presents to the emergency department reporting shortness of breath. Patient admits to a history of asthma. States that at home he felt like he could not get a big breath in. He has been using his inhaler without improvement therefore EMS was called. They did give him a DuoNeb breathing treatment en route to the hospital and he arrives stating that he does feel better. He denies any chest pain. No history of cardiac disease. No fevers, chills or cough. Patient states he has been chronically on steroids because of his brain cancer for which she is on oral therapy at this time. He feels as if his breathing issue began after he came off of the steroids. He does have chronic leg swelling. No other alleviating, precipitating or modifying factors (Kierra Lim) - Related Data Home Medications Medication Instructions Recorded Confirmed Levothyroxine Sodium [Synthroid] 88 mcg PO DAILY 01/24/23 04/10/23 Sildenafil Citrate [Viagra] 100 mg PO DAILY PRN 01/24/23 04/10/23 lisinopriL [Zestril] 30 mg PO DAILY 01/24/23 04/10/23 dilTIAZem HCL [dilTIAZem HCL 24Hr 120 mg PO HS 04/10/23 04/10/23 ER ([place])] Previous Rx's Medication Instructions Recorded Ipratropium-Albuterol Nebulize 3 ml INHALATION QID #75 ml 04/29/24 [Duoneb 0.5 mg-3 mg/3 ml Soln] Allergies Allergy/AdvReac Type Severity Reaction Status Date / Time amlodipine besylate AdvReac Swelling Verified 12/06/23 13:49 [From Norvasc] levofloxacin [From Levaquin] AdvReac FATIGUE, Verified 12/06/23 13:49 WEAKNESS AND DARK URINE montelukast sodium AdvReac CAUSED URI Verified 12/06/23 13:49 [From Singulair] Review of Systems ROS Other: All systems not noted in ROS Statement are negative. <Kierra Lim - Last Filed: 04/29/24 22:53> ROS Other: All systems not noted in ROS Statement are negative. <Robert Gonzalez - Last Filed: 04/30/24 02:10> ROS Statement: Those systems with pertinent positive or pertinent negative responses have been documented in the HPI. 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 History of Any Multi-Drug Resistant Organisms: None Reported Past Surgical History: Hernia Repair, Tonsillectomy Additional Past Surgical History / Comment(s): Bilateral inguinal hernia repairs, colonoscopies/benign polypectomy, RKAK bilateral eyes, hemorrhoidectomy, nasal reconstruction Past Anesthesia/Blood Transfusion Reactions: No Reported Reaction Additional Past Anesthesia/Blood Transfusion Reaction / Comment(s): unsure if pt has had any problems with anesthesia Past Psychological History: No Psychological Hx Reported Smoking Status: Former smoker Past Alcohol Use History: Occasional Past Drug Use History: None Reported - Past Family History Father Family Medical History: Dementia Additional Family Medical History / Comment(s): Father of dementia at the age of 94 yrs. Mother Family Medical History: No Reported History Additional Family Medical History / Comment(s): Mother of some sort of intestinal problem at the age of 48 or 49yrs. <Kierra Lim - Last Filed: 04/29/24 22:53> Course Vital Signs 04/29/24 04/29/24 04/29/24 19:31 19:35 22:05 Temperature 97.6 F Pulse Rate 101 H 112 H Respiratory 16 16 18 Rate Blood Pressure 150/68 157/106 O2 Sat by Pulse 100 96 Oximetry 04/29/24 04/30/24 04/30/24 22:49 00:08 01:19 Temperature Pulse Rate 131 H 98 89 Respiratory 20 18 Rate Blood Pressure 138/94 148/95 O2 Sat by Pulse 97 Oximetry Medical Decision Making - Lab Data Result diagrams: 04/29/24 21:04 04/29/24 21:04 <Kierra Lim - Last Filed: 04/29/24 22:53> - Lab Data Result diagrams: 04/29/24 21:04 04/29/24 21:04 <Robert Gonzalez - Last Filed: 04/30/24 02:10> - Medical Decision Making Was pt. sent in by a medical professional or institution (JUNI Restrepo, THERAPEUTIC RECREATION DIRECTOR, urgent care, hospital, or residential...) When possible be specific @ -[No] Did you speak to anyone other than the patient for history (EMS, parent, family, police, friend...)? What history was obtained from this source @ -[No] Did you review nursing and triage notes (agree or disagree)? Why? @ -[I reviewed and agree with nursing and triage notes] Were old charts reviewed (outside hosp., previous admission, EMS record, old EKG, old radiological studies, urgent care reports/EKG's, residential records)? Report findings @ -[No old charts were reviewed] Differential Diagnosis (chest pain, altered mental status, abdominal pain women, abdominal pain men, vaginal bleeding, weakness, fever, dyspnea, syncope, headache, dizziness, GI bleed, back pain, seizure, CVA, palpatations, mental health, musculoskeletal)? @ -[not applicable] EKG interpreted by me (3pts min.). @ -Completed@204 demonstrates sinus rhythm with a rate of 98. DC interval 166. QRS 90. QTc of 397. No acute ST segment elevations or depressions Repeat completed at 2244 demonstrates sinus tach with PACs versus A-fib. Rate of 134. DC interval 155. QRS 88. QTc of 378. No acute ST segment elevations or depressions X-rays interpreted by me (1pt min.). @ -[None done] CT interpreted by me (1pt min.). @ -[None done] U/S interpreted by me (1pt. min.). @ -[None done] What testing was considered but not performed or refused? (CT, X-rays, U/S, labs)? Why? @ -[None] What meds were considered but not given or refused? Why? @ -[None] Did you discuss the management of the patient with other professionals (mariano jarvis i.e. , JUNI, THERAPEUTIC RECREATION DIRECTOR, lab, RT, psych nurse, social economist, blaster helper, teacher, policy officer, bilingual patient support caseworker)? Give summary @ -[No] Was smoking cessation discussed for >3mins.? @ -[No] Was critical care preformed (if so, how long)? @ -[No] Were there social determinants of health that impacted care today? How? (Homelessness, low income, unemployed, alcoholism, drug addiction, transportation, low edu. Level, literacy, decrease access to med. care, detention, rehab)? @ -[No] Was there de-escalation of care discussed even if they declined (Discuss DNR or withdrawal of care, Hospice)? DNR status @ -[No] What co-morbidities impacted this encounter? (DM, HTN, Smoking, COPD, CAD, Cancer, CVA, ARF, Chemo, Hep., AIDS, mental health diagnosis, sleep apnea, morbid obesity)? @ -[None] Was patient admitted / discharged? Hospital course, mention meds given and route, prescriptions, significant lab abnormalities, going to OR and other pertinent info. @ -[hospital course] Undiagnosed new problem with uncertain prognosis? @ -[No] Drug Therapy requiring intensive monitoring for toxicity (Heparin, Nitro, Insulin, Cardizem)? @ -[No] Were any procedures done? @ -[No] Diagnosis/symptom? @ -[default] Acute, or Chronic, or Acute on Chronic? @ -[default] Uncomplicated (without systemic symptoms) or Complicated (systemic symptoms)? @ -[default] Side effects of treatment? @ -[No] Exacerbation, Progression, or Severe Exacerbation? @ -[No] Poses a threat to life or bodily function? How? (Chest pain, USA, OR, pneumonia, PE, COPD, DKA, ARF, appy, cholecystitis, CVA, Diverticulitis, Homicidal, Suicidal, threat to staff... and all critical care pts) @ -[No] (Kierra Lim) - Lab Data Lab Results 04/29/24 04/29/24 04/29/24 Range/Units 21:04 21:04 21:04 WBC 3.3 L (3.8-10.6) k/uL RBC 3.30 L (4.30-5.90) m/uL Hgb 10.5 L (13.0-17.5) gm/dL Hct 30.1 L (39.0-53.0) % MCV 91.0 (80.0-100.0) fL MCH 31.9 (25.0-35.0) pg MCHC 35.1 (31.0-37.0) g/dL RDW 15.8 H (11.5-15.5) % Plt Count 249 (150-450) k/uL MPV 6.5 Neutrophils % 82 % Lymphocytes % 9 % Monocytes % 6 % Eosinophils % 0 % Basophils % 1 % Neutrophils # 2.7 (1.3-7.7) k/uL Lymphocytes # 0.3 L (1.0-4.8) k/uL Monocytes # 0.2 (0-1.0) k/uL Eosinophils # 0.0 (0-0.7) k/uL Basophils # 0.0 (0-0.2) k/uL Poikilocytosis Slight PT 10.1 (10.0-12.5) sec INR 0.9 (<1.2) APTT 22.3 (22.0-30.0) sec Sodium 136 L (137-145) mmol/L Potassium 3.3 L (3.5-5.1) mmol/L Chloride 103 (98-107) mmol/L Carbon Dioxide 27 (22-30) mmol/L Anion Gap 6 mmol/L BUN 11 (9-20) mg/dL Creatinine 0.75 (0.66-1.25) mg/dL Est GFR (CKD-EPI)AfAm >90 (>60 ml/min/1.73 sqM) Est GFR (CKD-EPI)NonAf >90 (>60 ml/min/1.73 sqM) Glucose 110 H (74-99) mg/dL Plasma Lactic Acid Kiel (0.7-2.0) mmol/L Calcium 9.4 (8.4-10.2) mg/dL Total Bilirubin 0.7 (0.2-1.3) mg/dL AST 21 (17-59) U/L ALT 22 (4-49) U/L Alkaline Phosphatase 71 (38-126) U/L Troponin I (0.000-0.034) ng/mL NT-Pro-B Natriuret Pep 86 pg/mL Total Protein 5.7 L (6.3-8.2) g/dL Albumin 3.7 (3.5-5.0) g/dL 04/29/24 04/29/24 Range/Units 21:04 21:04 WBC (3.8-10.6) k/uL RBC (4.30-5.90) m/uL Hgb (13.0-17.5) gm/dL Hct (39.0-53.0) % MCV (80.0-100.0) fL MCH (25.0-35.0) pg MCHC (31.0-37.0) g/dL RDW (11.5-15.5) % Plt Count (150-450) k/uL MPV Neutrophils % % Lymphocytes % % Monocytes % % Eosinophils % % Basophils % % Neutrophils # (1.3-7.7) k/uL Lymphocytes # (1.0-4.8) k/uL Monocytes # (0-1.0) k/uL Eosinophils # (0-0.7) k/uL Basophils # (0-0.2) k/uL Poikilocytosis PT (10.0-12.5) sec INR (<1.2) APTT (22.0-30.0) sec Sodium (137-145) mmol/L Potassium (3.5-5.1) mmol/L Chloride (98-107) mmol/L Carbon Dioxide (22-30) mmol/L Anion Gap mmol/L BUN (9-20) mg/dL Creatinine (0.66-1.25) mg/dL Est GFR (CKD-EPI)AfAm (>60 ml/min/1.73 sqM) Est GFR (CKD-EPI)NonAf (>60 ml/min/1.73 sqM) Glucose (74-99) mg/dL Plasma Lactic Acid Kiel 1.7 (0.7-2.0) mmol/L Calcium (8.4-10.2) mg/dL Total Bilirubin (0.2-1.3) mg/dL AST (17-59) U/L ALT (4-49) U/L Alkaline Phosphatase (38-126) U/L Troponin I <0.012 (0.000-0.034) ng/mL NT-Pro-B Natriuret Pep pg/mL Total Protein (6.3-8.2) g/dL Albumin (3.5-5.0) g/dL Disposition Is patient prescribed a controlled substance at d/c from ED?: No Time of Disposition: 22:07 <Kierra Lim - Last Filed: 04/29/24 22:53> Is patient prescribed a controlled substance at d/c from ED?: No <Robert Gonzalez - Last Filed: 04/30/24 02:10> Clinical Impression: Asthma exacerbation Disposition: HOME SELF-CARE Condition: Stable Instructions (If sedation given, give patient instructions): Asthma (ED) Additional Instructions: Please use the nebulizer in replacement of the inhaler to see if that helps your symptoms. Follow up with your doctor and return for any new or worsening symptoms. Prescriptions: Ipratropium-Albuterol Nebulize [Duoneb 0.5 mg-3 mg/3 ml Soln] 3 ml INHALATION QID #75 ml Referrals: Bipin Mancia DO [Primary Care Provider] - 1-2 days
--- NOTE | 2024-04-30 01:06 | CT ---
EXAM: CT Angiography Chest With Intravenous Contrast CLINICAL HISTORY: ITS.REASON CT Reason: shortness of breath, cancer hx TECHNIQUE: Axial computed tomographic angiography images of the chest with intravenous contrast. CTDI is 13.3 mGy and DLP is 554.3 mGy-cm. This CT exam was performed using one or more of the following dose reduction techniques: automated exposure control, adjustment of the mA and/or kV according to patient size, and/or use of iterative reconstruction technique. MIP reconstructed images were created and reviewed. COMPARISON: No relevant prior studies available. FINDINGS: Pulmonary arteries: Unremarkable. No acute pulmonary embolism. Aorta: Atherosclerotic changes of the aorta. No thoracic aortic aneurysm. Lungs: RIGHT lower lobe consolidation measures approximately 2 cm. This may represent a small focus of atelectasis versus nodule. Follow-up as per Fleischner Society guidelines. Pleural space: Unremarkable. No significant effusion. No pneumothorax. Heart: Unremarkable. No cardiomegaly. No significant pericardial effusion. No evidence of RV dysfunction. Bones/joints: Degenerative changes of the spine. No acute fracture. No dislocation. Soft tissues: Unremarkable. Lymph nodes: Unremarkable. No enlarged lymph nodes. IMPRESSION: 1. No acute pulmonary embolism. 2. RIGHT lower lobe consolidation measures approximately 2 cm. This may represent a small focus of atelectasis versus nodule. Follow-up as per Fleischner Society guidelines.
[2024-04-30 01:20] VITALS: BP 148/95; PULSE 89; RESP 18
== END 2024-04-30 02:22 | disposition home or self-care (01) ==
LOC: EC 19:01
DX: J45.901 Unspecified asthma with (acute) exacerbation (principal); Z87.891 Personal history of nicotine dependence; Z88.8 Allergy status to other drugs, medicaments and biological substances
CPT/HCPCS: 36415; 93005; 83880; 80053; 83605; 84484; 85025; 85610; 85730; 71046; 71275; 99285; Q9967

== ENCOUNTER 2024-08-23 14:11 | Emergency (ER) | payer MEDICARE, OTHER ==
[2024-08-23 14:25] VITALS: BP 157/95; PULSE 67; RESP 20; TEMP 97.7
[2024-08-23 14:59] LABS: Basophils % (A) 0 %; Eosinophils % (A) 1 %; HCT 35.4 % (39.0-53.0); HGB 12.4 gm/dL (13.0-17.5); Hyperchromasia Slight; Lymphocytes # (A) 0.4 k/uL (1.0-4.8); Lymphocytes % (A) 9 %; MCH 31.2 pg (25.0-35.0); MCHC 35.1 g/dL (31.0-37.0); MCV 88.8 fL (80.0-100.0); Mean Platelet Volume 7.1; Monocytes # (A) 0.3 k/uL (0-1.0); Monocytes % (A) 6 %; Neutrophils # (A) 3.6 k/uL (1.3-7.7); Neutrophils % (A) 83 %; Platelet Count 110 k/uL (150-450); RBC 3.98 m/uL (4.30-5.90); RDW 15.5 % (11.5-15.5); WBC 4.4 k/uL (3.8-10.6)
[2024-08-23 15:09] LABS: ALT 44 U/L (4-49); AST 21 U/L (17-59); African American GFR (CKD) >90 (>60 ml/min/1.73 sqM); Albumin 3.5 g/dL (3.5-5.0); Alkaline Phosphatase 58 U/L (38-126); Anion Gap 1 mmol/L; Blood Urea Nitrogen 18 mg/dL (9-20); Calcium 8.7 mg/dL (8.4-10.2); Carbon Dioxide 32 mmol/L (22-30); Chloride 102 mmol/L (98-107); Glucose 103 mg/dL (74-99); Magnesium 2.1 mg/dL (1.6-2.3); Non-African American GFR(CKD) >90 (>60 ml/min/1.73 sqM); Phosphorus 3.4 mg/dL (2.5-4.5); Potassium 3.5 mmol/L (3.5-5.1); Sodium 135 mmol/L (137-145); Total Bilirubin 0.9 mg/dL (0.2-1.3); Total Protein 5.6 g/dL (6.3-8.2)
--- NOTE | 2024-08-23 15:14 | ED ---
Male Urogenital HPI - General Chief complaint: Urogenital Stated complaint: UTI Time Seen by Provider: 08/23/24 14:18 Source: patient, RN notes reviewed Mode of arrival: EMS Limitations: no limitations, altered mental status - History of Present Illness Initial comments: This is a 64-year-old male who presents to the emergency department for weakness and possible UTI. Family states that for the last several weeks he has been increasingly confused, having urinary incontinence, and back pain. He has also been very weak and struggling to get around. He was treated with Bactrim for a UTI earlier this month and has since finished it. He has not been on any medication for it since. Family states they called his PCP today and they were advised to bring him to the emergency department for evaluation. Does not currently follow with urology. He was diagnosed with stage IV glioblastoma earlier this year. Currently follows with Viv[facility]. He had an MRI of the brain 1 week ago and everything appeared stable. They discussed these concerns with U mercedes f them and they recommended he schedule an MRI of the entire spine outpatient to further evaluate for potential causes of his weakness. Patient reports chronic lower back pain but otherwise states that he feels fine. - Related Data Home Medications Medication Instructions Recorded Confirmed Levothyroxine Sodium [Synthroid] 88 mcg PO DAILY 01/24/23 04/10/23 Sildenafil Citrate [Viagra] 100 mg PO DAILY PRN 01/24/23 04/10/23 lisinopriL [Zestril] 30 mg PO DAILY 01/24/23 04/10/23 dilTIAZem HCL [dilTIAZem HCL 24Hr 120 mg PO HS 04/10/23 04/10/23 ER ([place])] Previous Rx's Medication Instructions Recorded Ipratropium-Albuterol Nebulize 3 ml INHALATION QID #75 ml 04/29/24 [Duoneb 0.5 mg-3 mg/3 ml Soln] Allergies Allergy/AdvReac Type Severity Reaction Status Date / Time amlodipine besylate AdvReac Swelling Verified 08/23/24 14:25 [From Norvasc] levofloxacin [From Levaquin] AdvReac FATIGUE, Verified 08/23/24 14:25 WEAKNESS AND DARK URINE montelukast sodium AdvReac CAUSED URI Verified 08/23/24 14:25 [From Singulair] Review of Systems ROS Statement: Those systems with pertinent positive or pertinent negative responses have been documented in the HPI. ROS Other: All systems not noted in ROS Statement are negative. Past Medical History Past Medical History: Asthma, Cancer, Hyperlipidemia, Hypertension, Memory Impairment, Sleep Apnea/CPAP/BIPAP Additional Past Medical History / Comment(s): CRIS without device, diverticulits dx, chronic back pain, sinus problems. 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 History of Any Multi-Drug Resistant Organisms: None Reported Past Surgical History: Hernia Repair, Tonsillectomy Additional Past Surgical History / Comment(s): Bilateral inguinal hernia repairs, colonoscopies/benign polypectomy, RKAK bilateral eyes, hemorrhoidectomy, nasal reconstruction Past Anesthesia/Blood Transfusion Reactions: No Reported Reaction Additional Past Anesthesia/Blood Transfusion Reaction / Comment(s): unsure if pt has had any problems with anesthesia Past Psychological History: No Psychological Hx Reported Smoking Status: Former smoker Past Alcohol Use History: Occasional Past Drug Use History: None Reported - Past Family History Father Family Medical History: Dementia Additional Family Medical History / Comment(s): Father of dementia at the age of 94 yrs. Mother Family Medical History: No Reported History Additional Family Medical History / Comment(s): Mother of some sort of intestinal problem at the age of 48 or 49yrs. General Exam Limitations: altered mental status General appearance: alert, in no apparent distress Head exam: Present: atraumatic, normocephalic, normal inspection Respiratory exam: Present: normal lung sounds bilaterally. Absent: respiratory distress, wheezes, rales, rhonchi, stridor Cardiovascular Exam: Present: regular rate, normal rhythm, normal heart sounds. Absent: systolic murmur, diastolic murmur, rubs, gallop, clicks GI/Abdominal exam: Present: soft, normal bowel sounds. Absent: distended, tenderness, guarding, rebound, rigid Neurological exam: Present: alert, oriented X3, CN II-XII intact Psychiatric exam: Present: normal affect, normal mood Skin exam: Present: warm, dry, intact, normal color. Absent: rash Course Vital Signs 08/23/24 14:21 Temperature 97.7 F Pulse Rate 67 Respiratory 20 Rate Blood Pressure 157/95 O2 Sat by Pulse 99 Oximetry Medical Decision Making - Medical Decision Making This is a 64 year old male who presents to the emergency department for weakness and possible UTI. Was pt. sent in by a medical professional or institution? @ -No Did you speak to anyone other than the patient for history? @ -Family and EMS provided the majority of the history. Did you review nursing and triage notes? @ -Yes, and I agree, it is accurate with regards to the patient's symptoms. Were old charts reviewed? @ -No Differential Diagnosis? @ -Differential Weakness: Hypoglycemia, shock, sepsis, hyponatremia, anemia, infection, CO, ETOH, adverse medicine reaction, overdose, stroke, this is not meant to be an all-inclusive list. EKG interpreted by me (3pts min.)? @ -EKG interpreted by me demonstrating the following: Sinus rhythm. Ventricular rate 61 bpm, DE interval 154 ms, QRS duration 84 ms, QTc 402 ms. X-rays interpreted by me (1pt min.)? @ -Not obtained CT interpreted by me (1pt min.)? @ -Not obtained U/S interpreted by me (1pt. min.)? @ -Not obtained What testing was considered but not performed? (CT, X-rays, U/S, labs)? Why? @ -Cepheid 4-plex testing, however patient and family declined. What meds were considered but not given? Why? @ -None Did you discuss the management of the patient with other professionals? @ -No Did you reconcile home meds? @ -No Was smoking cessation discussed for >3mins.? @ -No Was critical care preformed (if so, how long)? @ -No Were there social determinants of health that impacted care today? How? (Homelessness, low income, unemployed, alcoholism, drug addiction, transportation, low edu. Level, literacy, decrease access to med. care, care home, rehab)? @ -No Was there de-escalation of care discussed even if they declined? (Discuss DNR or withdrawal of care, Hospice)? @ -No What co-morbidities impacted this encounter? (DM, HTN, Smoking, COPD, CAD, Cancer, CVA, Hep., AIDS, mental health diagnosis, sleep apnea, morbid obesity)? @ -Glioblastoma Was patient admitted / discharged? @ -Discharged. Lab work relatively unremarkable. Urinalysis negative for signs of infection. Patient's family largely concerned about the patient having progressive weakness. Discussed that this could be related to the glioblastoma. He is also essentially bedbound and given that he is not moving much, we discussed that this can contribute to debility and worsening weakness on its own. I did offer Cepheid 4 Plex testing to see if there is any viral syndrome contributing to his weakness. Patient and family declined. In discussing disposition they were comfortable taking him home at this point. Advised follow-up with his PCP for reevaluation of ongoing symptoms and we also discussed strict return parameters. Patient discharged home in stable condition. Case discussed with ED attending Dr. Acuna. Return precautions reviewed in depth, the patient is instructed to return to the emergency department with any new, worsening, or concerning symptoms. Patient verbalized understanding. Undiagnosed new problem with uncertain prognosis? @ -None Drug Therapy requiring intensive monitoring for toxicity (Heparin, Nitro, Insulin, Cardizem)? @ -None Were any procedures done? @ -None Diagnosis/symptom? @ -Weakness, urinary incontinence Acute, or Chronic, or Acute on Chronic? @ -Acute Uncomplicated (without systemic symptoms) or Complicated (systemic symptoms)? @ -Complicated Side effects of treatment? @ -None Exacerbation, Progression, or Severe Exacerbation] @ -Not applicable Poses a threat to life or bodily function? @ -This is impacting his function to some extent - Lab Data Result diagrams: 08/23/24 14:36 08/23/24 14:36 Lab Results 08/23/24 08/23/24 08/23/24 Range/Units 14:36 14:36 14:36 WBC 4.4 (3.8-10.6) k/uL RBC 3.98 L (4.30-5.90) m/uL Hgb 12.4 L (13.0-17.5) gm/dL Hct 35.4 L (39.0-53.0) % MCV 88.8 (80.0-100.0) fL MCH 31.2 (25.0-35.0) pg MCHC 35.1 (31.0-37.0) g/dL RDW 15.5 (11.5-15.5) % Plt Count 110 L (150-450) k/uL MPV 7.1 Neutrophils % 83 % Lymphocytes % 9 % Monocytes % 6 % Eosinophils % 1 % Basophils % 0 % Neutrophils # 3.6 (1.3-7.7) k/uL Lymphocytes # 0.4 L (1.0-4.8) k/uL Monocytes # 0.3 (0-1.0) k/uL Eosinophils # 0.0 (0-0.7) k/uL Basophils # 0.0 (0-0.2) k/uL Hyperchromasia Slight Sodium 135 L (137-145) mmol/L Potassium 3.5 (3.5-5.1) mmol/L Chloride 102 (98-107) mmol/L Carbon Dioxide 32 H (22-30) mmol/L Anion Gap 1 mmol/L BUN 18 (9-20) mg/dL Creatinine 0.73 (0.66-1.25) mg/dL Est GFR (CKD-EPI)AfAm >90 (>60 ml/min/1.73 sqM) Est GFR (CKD-EPI)NonAf >90 (>60 ml/min/1.73 sqM) Glucose 103 H (74-99) mg/dL Plasma Lactic Acid Kiel 1.5 (0.7-2.0) mmol/L Calcium 8.7 (8.4-10.2) mg/dL Phosphorus 3.4 (2.5-4.5) mg/dL Magnesium 2.1 (1.6-2.3) mg/dL Total Bilirubin 0.9 (0.2-1.3) mg/dL AST 21 (17-59) U/L ALT 44 (4-49) U/L Alkaline Phosphatase 58 (38-126) U/L Total Protein 5.6 L (6.3-8.2) g/dL Albumin 3.5 (3.5-5.0) g/dL Urine Color Urine Appearance (Clear) Urine pH (5.0-8.0) Ur Specific Hilliards (1.001-1.035) Urine Protein (Negative) Urine Glucose (UA) (Negative) Urine Ketones (Negative) Urine Blood (Negative) Urine Nitrite (Negative) Urine Bilirubin (Negative) Urine Urobilinogen (<2.0) mg/dL Ur Leukocyte Esterase (Negative) 08/23/24 Range/Units 14:50 WBC (3.8-10.6) k/uL RBC (4.30-5.90) m/uL Hgb (13.0-17.5) gm/dL Hct (39.0-53.0) % MCV (80.0-100.0) fL MCH (25.0-35.0) pg MCHC (31.0-37.0) g/dL RDW (11.5-15.5) % Plt Count (150-450) k/uL MPV Neutrophils % % Lymphocytes % % Monocytes % % Eosinophils % % Basophils % % Neutrophils # (1.3-7.7) k/uL Lymphocytes # (1.0-4.8) k/uL Monocytes # (0-1.0) k/uL Eosinophils # (0-0.7) k/uL Basophils # (0-0.2) k/uL Hyperchromasia Sodium (137-145) mmol/L Potassium (3.5-5.1) mmol/L Chloride (98-107) mmol/L Carbon Dioxide (22-30) mmol/L Anion Gap mmol/L BUN (9-20) mg/dL Creatinine (0.66-1.25) mg/dL Est GFR (CKD-EPI)AfAm (>60 ml/min/1.73 sqM) Est GFR (CKD-EPI)NonAf (>60 ml/min/1.73 sqM) Glucose (74-99) mg/dL Plasma Lactic Acid Kiel (0.7-2.0) mmol/L Calcium (8.4-10.2) mg/dL Phosphorus (2.5-4.5) mg/dL Magnesium (1.6-2.3) mg/dL Total Bilirubin (0.2-1.3) mg/dL AST (17-59) U/L ALT (4-49) U/L Alkaline Phosphatase (38-126) U/L Total Protein (6.3-8.2) g/dL Albumin (3.5-5.0) g/dL Urine Color Yellow Urine Appearance Clear (Clear) Urine pH 6.5 (5.0-8.0) Ur Specific Hilliards 1.019 (1.001-1.035) Urine Protein Negative (Negative) Urine Glucose (UA) Negative (Negative) Urine Ketones Negative (Negative) Urine Blood Negative (Negative) Urine Nitrite Negative (Negative) Urine Bilirubin Negative (Negative) Urine Urobilinogen <2.0 (<2.0) mg/dL Ur Leukocyte Esterase Negative (Negative) Disposition Clinical Impression: Weakness, Urinary incontinence Disposition: HOME SELF-CARE Instructions (If sedation given, give patient instructions): Urinary Incontinence (ED) Additional Instructions: Return to the emergency department with any new, worsening, or concerning symptoms. Follow up with your primary care provider in 1-2 days. Is patient prescribed a controlled substance at d/c from ED?: No Referrals: Bipin Mancia DO [Primary Care Provider] - 1-2 days Time of Disposition: 16:41
[2024-08-23 16:03] LABS: Appearance,Urine Clear (Clear); Bilirubin,Urine Negative (Negative); Blood,Urine Negative (Negative); Color,Urine Yellow; Glucose,Urine (UA) Negative (Negative); Ketones,Urine Negative (Negative); Leukocyte Esterase,Urine Negative (Negative); Nitrite,Urine Negative (Negative); PH, Urine 6.5 (5.0-8.0); Protein,Urine Negative (Negative); Specific Gravity,Urine 1.019 (1.001-1.035); Urobilinogen,Urine <2.0 mg/dL (<2.0)
== END 2024-08-23 17:40 | disposition home or self-care (01) ==
LOC: EC 14:11
DX: R32 Unspecified urinary incontinence (principal); R53.1 Weakness; Z87.891 Personal history of nicotine dependence; Z88.1 Allergy status to other antibiotic agents; Z88.8 Allergy status to other drugs, medicaments and biological substances
CPT/HCPCS: 36415; 80053; 81003; 83605; 83735; 84100; 85025; 93005; 99283